=== PATIENT | male | born 1935 | race Caucasian/White ===

== ENCOUNTER → 2016-06-22 | Outpatient (CLI) | payer OTHER | LOC: BMCIMAGING 10:57 | PROVIDERS: ATTEND Internal Medicine Rheumatology | DX: M19.041 Primary osteoarthritis, right hand (principal); M19.042 Primary osteoarthritis, left hand; M17.11 Unilateral primary osteoarthritis, right knee ==

== ENCOUNTER 2016-10-02 11:01 | Inpatient (IN) | payer OTHER ==
--- NOTE | 2016-10-02 12:49 | EDPHY ---
H & P Stated Complaint: sent by pcp for R great toe -poss hematoma/infection? - Personal History Current Tetanus/Diphtheria Vaccine: Unsure Current Tetanus Diphtheria and Acellular Pertussis (TDAP): Unsure Tetanus Vaccine Date: 2009 - Medical/Surgical History Hx Asthma: No Hx Chronic Respiratory Disease: No Hx Diabetes: No Hx Cardiac Disease: Yes Hx Renal Disease: No Hx Cirrhosis: No Hx Alcoholism: No Hx HIV/AIDS: No Hx Splenectomy or Spleen Trauma: No Other PMH: heart arrthymias.afib, TIA 2012, hyperlipemia/AFIB - Social History Smoking Status: Former smoker Time Seen by Provider: 10/02/16 12:22 HPI/ROS: CHIEF COMPLAINT: Right great toe swelling and pain HISTORY OF PRESENT ILLNESS: 81-year-old male arrives via private vehicle complaining of progressive right great toe swelling, erythema over the past 2 days. He saw his primary care provider yesterday and had incision, drainage with release of purulent material and suturing of the incision and notes that the soft tissue swelling and erythema have progressed. He can size primary care prior to today and was recommended he come to the emergency department for further evaluation. He is on daily warfarin secondary to history of TIA. He denies lymphangitic streaking. Denies fever chills. Denies flu-like symptoms. Denies trauma history. PRIMARY CARE PROVIDER: Eva REVIEW OF SYSTEMS: A ten point review of systems was performed and is negative with the exception of the items mentioned in the HPI PAST MEDICAL & SURGICAL HISTORY: TIA, hyperlipidemia SOCIAL HISTORY: nonsmoker PHYSICAL EXAM (Prior to examination, patient consented to physical exam, hands were washed and my usual and customary physical exam procedures followed) 1) GENERAL: Well-developed, well-nourished, alert and oriented. Appears to be in no acute distress. 2) HEAD: Normocephalic, atraumatic 3) HEENT: Pupils equal, round, reactive to light bilaterally. Sclera anicteric. 4) NECK: Full range of motion, no meningeal signs. 5) LUNGS: Clear auscultation bilaterally 6) HEART: Regular rate and rhythm, no murmur, no heave, no gallop. 7) ABDOMEN: No guarding, no rebound, no focal tenderness, 8) MUSCULOSKELETAL: right lower extremity: No inguinal adenopathy, the right great toe is edematous, erythematous, tender, painful passive range of motion. Sutures in place on the dorsal aspect. No crepitus. Dried blood present. No lymphangitic streaking 9) BACK: no visual or palpable abnormality. 10) SKIN: Right great toe erythema. 11) Psychiatric: Patient is oriented X 3, there is no agitation. DIFFERENTIAL DIAGNOSIS: [in no particular include but limited to osteomyelitis , deep space infection, abscess, hematoma, arterial thrombus (Tammi Pretty Cap[place]) Constitutional: Initial Vital Signs Temperature (C) 36.5 C 10/02/16 11:05 Heart Rate 71 10/02/16 11:05 Respiratory Rate 16 10/02/16 11:05 Blood Pressure 132/88 H 10/02/16 11:05 O2 Sat (%) 97 10/02/16 11:05 O2 Delivery Mode Room Air Allergies/Adverse Reactions: No Known Allergies Allergy (Verified 12/22/15 16:01) Home Medications: Medication Instructions Recorded Cholecalciferol Vit D3 [Vitamin D3 2,000 units PO DAILY 10/02/16 (*)] Erythromycin Gel [Erythromycin 2% 1 [place]orota TP PRN PRN 10/02/16 Gel (*)] Warfarin Sodium [Coumadin 7.5MG 7.5 mg PO DAILY16 10/02/16 (*)] Medical Decision Making - Diagnostics Imaging: Discussed imaging studies w/ call specialist Radiologist, I viewed and interpreted images myself ED Course/Re-evaluation: 12:40 p.m.: Suture removed with release of bloody material only. Patient also seen and examined by Dr Martinez. No history of chronic skin infections or MRSA. His tetanus is up-to-date. Will be started on IV Ancef, blood cultures will be obtained. Will plan on admission for concerns over cellulitis, abscess, deep space infection, may necessitate MRI. 12:54 p.m.: Phone consultation with hospitalist Dr. Tre Mcleod who will admit patient (Tammi Pretty) Other Provider: I examined this patient at bedside and agree with Maria De Jesus's findings and plan for treatment. Exam reveals extremely swollen and erythematous toe, very suspicious for infection. (Navi Martinez) - Data Points Laboratory Results: Laboratory Results 10/02/16 13:10 10/02/16 13:10 Medications Given: Cefazolin Sodium/Dextrose (Ancef 1 Gm (Premix)) 50 mls @ 200 mls/hr IV Q8HRS FRANCISOC J PRN Reason: Protocol Stop: 11/01/16 19:59 Last Admin: 10/02/16 22:36 Dose: 50 mls Discontinued Medications Cefazolin Sodium/Dextrose (Ancef 1 Gm (Premix)) 50 mls @ 200 mls/hr IV EDNOW ONE PRN Reason: Protocol Stop: 10/02/16 13:03 Last Admin: 10/02/16 14:17 Dose: 50 mls Departure - Departure Disposition: [facility] Acute Clinical Impression: Cellulitis of great toe, right Condition: Fair
[2016-10-02 13:23] LABS: % IMMATURE GRANULYOCYTES 0.6 % (0.0-1.1); ABSOLUTE IMMATURE GRANULOCYTES 0.05 10^3/uL (0.00-0.10); ADD DIFF? NO; ADD MORPH? NO; ADD SCAN? NO; ATYPICAL LYMPHOCYTE FLAG 10 (0-99); FRAGMENT RBC FLAG 0 (0-99); HEMATOCRIT 43.9 % (40.0-51.0); HEMOGLOBIN 15.4 g/dL (13.7-17.5); LEFT SHIFT FLG 0 (0-99); LIPEMIA HEMOLYSIS FLAG 90 (0-99); MEAN CELL HEMOGLOBIN 31.1 pg (27.9-34.1); MEAN CELL HEMOGLOBIN CONCENTR. 35.1 g/dL (32.4-36.7); MEAN CELL VOLUME 88.7 fL (81.5-99.8); PLATELET CLUMPS FLAG 0 (0-99); PLATELET COUNT 189 10^3/uL (150-400); RED BLOOD CELL COUNT 4.95 10^6/uL (4.40-6.38); RED CELL DISTRIBUTION WIDTH 13.9 % (11.5-15.2)
[2016-10-02 13:36] LABS: INR 1.39 (0.83-1.16)
[2016-10-02 13:37] LABS: APTT 36.2 SEC (23.0-38.0)
[2016-10-02 13:41] LABS: SODIUM 137 mEq/L (134-144)
[2016-10-02 13:42] LABS: ANION GAP 11 mEq/L (8-16); CALCIUM 9.9 mg/dL (8.5-10.4); CARBON DIOXIDE 24 mEq/l (22-31); CHLORIDE 102 mEq/L (97-110); CREATININE 0.9 mg/dL (0.7-1.3); GLOMERULAR FILTRATION RATE > 60; GLUCOSE 86 mg/dL (70-100)
[2016-10-02] MEDS ORDERED: ONDANSETRON DISINTEGRATING 4 MG TAB PO PRN (15:36)
[2016-10-02] MEDS ORDERED: ACETAMINOPHEN 325 MG TAB PO PRN (15:36)
[2016-10-02] MEDS ORDERED: ONDANSETRON 4 MG/2 ML VIAL IVP PRN (15:36)
[2016-10-02] MEDS ORDERED: ERYTHROMYCIN 2% GEL TP PRN (15:39)
[2016-10-02] MEDS ORDERED: ACETAMINOPHEN 500 MG TAB PO PRN (15:41)
[2016-10-02] MEDS ORDERED: IOPAMIDOL (ISOVUE-300) 100 ML BTL ONE (15:50)
--- NOTE | 2016-10-02 16:26 | GHP ---
[f rep st] HISTORY AND PHYSICAL DATE OF ADMISSION: 10/02/2016 HISTORY OF PRESENTING ILLNESS: The patient is a pleasant 81-year-old gentleman with history of atri al fibrillation, who presents with a swollen, erythematous right great toe. He said it began to swe ll a couple days ago. He has not had fever, chills, groin pain, or lymphangitic streaking. He does not have diabetes or neuropathy. He does not use injection drugs. He does not recall trauma to it . He saw his primary care physician yesterday, an incision was made and a small amount of pus came out. He was placed on antibiotics, which I believe are Keflex. He returned this morning and attemp t at I and D was made, and no further pus was drained. He was referred to the emergency department for further evaluation and management. When I speak with the patient, he continues to deny fever, chills, lymphangitic streaking, or groin pain. He has not had previous infections there. Denies previous injury. REVIEW OF SYSTEMS: Complete 10-point review of systems conducted, and negative except as noted in t he HPI. PAST MEDICAL HISTORY: 1. Atrial fibrillation. 2. Remote TIA. ALLERGIES: No known drug allergies. MEDICATIONS: 1. Warfarin. 2. Vitamin D3. 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 Lives at [facility]. Continues to live a ro bust life. No tobacco, very rare alcohol. FAMILY HISTORY: Reviewed and unremarkable. His daughter is healthy, at the bedside. PHYSICAL EXAMINATION: VITAL SIGNS: Temperature 36.5, blood pressure 132/88, pulse 71, breathing 16 times a minute, 97% on room air. GENERAL: No acute distress. Sclerae anicteric. Oropharynx koby r. Mucous membranes are moist. NECK: Supple, without lymphadenopathy or JVD. LUNGS: Clear to au scultation bilaterally. HEART: S1, S2. ABDOMEN: Soft, nontender, nondistended. LOWER EXTREMITIE S: Right great toe is edematous, erythematous and warm. There is no pain with passive movement. T here is no joint infection. There is a small incision that is clean, dry, and intact. I am unable to express pus from it. It is about twice the size of his left great toe. He says this toe is cut off operator scorer nically bigger. There is no lymphangitic streaking. No inguinal lymphadenopathy. SKIN: Otherwise without rash. NEUROLOGIC: Exam is nonfocal. LABS: Chem-7 normal. White count 8.5, hematocrit 44, platelets are 189,000. INR is 1.4. Foot film interpreted by me, shows no foreign body, no gas, no evidence of bony erosion. I have discussed the case with Navi Pretty, PAC, of the emergency department. ASSESSMENT/PLAN: This 81-year-old gentleman presents with soft tissue infection. 1. Soft tissue infection. His toe is pretty erythematous and I suspect the pus has been removed bu t given its refractory nature, I will go ahead and perform a CT to look for fluid collection. I guillermo l start him on cefazolin. He has minimal risk factors for methicillin-resistant Staphylococcus chap[place]ito us. 2. Atrial fibrillation. Clinically, he is in sinus. 3. He does not have sepsis. 4. Prophylaxis: I will continue his warfarin. 5. Disposition: Inpatient status. /[id number]/MODL
[2016-10-03 04:57] LABS: % IMMATURE GRANULYOCYTES 0.5 % (0.0-1.1); ABSOLUTE IMMATURE GRANULOCYTES 0.04 10^3/uL (0.00-0.10); ADD DIFF? NO; ADD MORPH? NO; ADD SCAN? NO; ATYPICAL LYMPHOCYTE FLAG 0 (0-99); FRAGMENT RBC FLAG 0 (0-99); HEMATOCRIT 41.7 % (40.0-51.0); HEMOGLOBIN 14.2 g/dL (13.7-17.5); LEFT SHIFT FLG 0 (0-99); LIPEMIA HEMOLYSIS FLAG 90 (0-99); MEAN CELL HEMOGLOBIN 30.3 pg (27.9-34.1); MEAN CELL HEMOGLOBIN CONCENTR. 34.1 g/dL (32.4-36.7); MEAN CELL VOLUME 88.9 fL (81.5-99.8); MEAN PLATELET VOLUME 10.8 fL (8.7-11.7); PLATELET CLUMPS FLAG 20 (0-99); PLATELET COUNT 169 10^3/uL (150-400); RED BLOOD CELL COUNT 4.69 10^6/uL (4.40-6.38); RED CELL DISTRIBUTION WIDTH 13.7 % (11.5-15.2)
[2016-10-03 05:05] LABS: INR 1.33 (0.83-1.16); PROTIME(PATIENT) 16.5 SEC (12.0-15.0)
[2016-10-03 05:13] LABS: ANION GAP 10 mEq/L (8-16); CALCIUM 9.3 mg/dL (8.5-10.4); CARBON DIOXIDE 24 mEq/l (22-31); CHLORIDE 103 mEq/L (97-110); GLOMERULAR FILTRATION RATE > 60; GLUCOSE 104 mg/dL (70-100); POTASSIUM 3.9 mEq/L (3.5-5.2); SODIUM 137 mEq/L (134-144)
--- NOTE | 2016-10-03 09:28 | HOSPPROG ---
Hospitalist Progress Note Assessment/Plan: 81 yo M w AF here w R great toe cellulitis toes cellulitis: CT w no abscess (images reviewed/interpreted by me) improved needs add'l day IV abx AF: clinically in sinus anticoag: inr subtherapeutic continue warfarin pain: well controlled dispo: inpt Subjective: lost IV access overnight Objective: Vital Signs Temp Pulse Resp BP Pulse Ox 36.6 C 67 18 107/66 93 10/03/16 08:00 10/03/16 08:00 10/03/16 08:00 10/03/16 08:00 10/03/16 08:00 Laboratory Results 10/03/16 04:36 10/03/16 04:36 10/02/16 10/03/16 10/04/16 05:59 05:59 05:59 Output Total 1051 Balance -1051 PT 16.5 SEC (12.0-15.0) H 10/03/16 04:36 INR 1.33 (0.83-1.16) H 10/03/16 04:36 - Physical Exam Constitutional: no apparent distress, appears nourished Eyes: PERRL, anicteric sclera Ears, Nose, Mouth, Throat: moist mucous membranes, hearing normal Cardiovascular: regular rate and rhythym, no murmur, rub, or gallop Respiratory: no respiratory distress, no rales or rhonchi Gastrointestinal: normoactive bowel sounds, soft, non-tender abdomen Genitourinary: no bladder fullness, No quiroz in urethra Skin: warm, normal color Musculoskeletal: other (R chuck less erythematous, less warm, still swollen, not normal) Neurologic: AAOx3, sensation intact bilaterally Psychiatric: interacting appropriately, not anxious ICD10 Worksheet Patient Problems: Problems Problem Status Onset Cellulitis of great toe, right Acute Hyperlipidemia Active Hypertriglyceridemia Active Transient ischemic attack Active Fatigue Acute Shortness of breath Acute Simple hepatic cyst Acute
[2016-10-03] MEDS: CHOLECALCIFEROL VIT D3 1,000 UNITS TAB PO SCH (10:48)
[2016-10-03] MEDS ORDERED: WARFARIN SODIUM 7.5 MG TAB PO SCH (16:00)
[2016-10-04 05:06] LABS: INR 1.28 (0.83-1.16)
[2016-10-04 07:12] VITALS: BP 125/65; PULSE 60; RESP 18; TEMP 98.6; O2SAT 92
[2016-10-04] MEDS: CHOLECALCIFEROL VIT D3 1,000 UNITS TAB PO SCH (08:59)
--- NOTE | 2016-10-04 09:19 | HOSPPROG ---
Hospitalist Progress Note Assessment/Plan: 81 yo M w AF here w R great toe cellulitis toes cellulitis: CT w no abscess (images reviewed/interpreted by me) improved leave after today's dose cefazolin 8 days keflex AF: clinically in sinus anticoag: inr subtherapeutic continue warfarin pain: well controlled dispo: home today > 30 minutes Subjective: feels well. toe not painful Objective: Vital Signs Temp Pulse Resp BP Pulse Ox 37.0 C 60 18 125/65 H 92 10/04/16 07:12 10/04/16 07:12 10/04/16 07:12 10/04/16 07:12 10/04/16 07:12 Laboratory Results 10/03/16 04:36 10/03/16 04:36 10/03/16 10/04/16 10/05/16 05:59 05:59 05:59 Intake Total 100 Output Total 1051 Balance -1051 100 PT 16.0 SEC (12.0-15.0) H 10/04/16 04:35 INR 1.28 (0.83-1.16) H 10/04/16 04:35 - Physical Exam Constitutional: no apparent distress, appears nourished Eyes: PERRL, anicteric sclera Ears, Nose, Mouth, Throat: moist mucous membranes, hearing normal Cardiovascular: regular rate and rhythym, no murmur, rub, or gallop Respiratory: no respiratory distress, no rales or rhonchi Gastrointestinal: normoactive bowel sounds, soft, non-tender abdomen Genitourinary: no bladder fullness, No quiroz in urethra Skin: warm, normal color Musculoskeletal: full muscle strength, other (toe improved. less red. less warm. no fluctuance) Neurologic: AAOx3, sensation intact bilaterally ICD10 Worksheet Patient Problems: Problems Problem Status Onset Cellulitis of great toe, right Acute Hyperlipidemia Active Hypertriglyceridemia Active Transient ischemic attack Active Fatigue Acute Shortness of breath Acute Simple hepatic cyst Acute
--- NOTE | 2016-10-04 12:42 | GDS ---
[f rep st] DISCHARGE SUMMARY DISCHARGE DIAGNOSES: 1. Right great toe cellulitis. 2. Atrial fibrillation. HOSPITAL COURSE: Please see admission history and physical by Dr. Tre Mcleod. The patient pres ented with an erythematous, warm right great toe. He had been seen by Dr. Velasquez, his outpatient physician who had I and D'd it 1 day with removal of pus the 2nd day. He tried to I and D it but he was concerned with how it looked. Referred him to the emergency department. The patient did not h ave sepsis. He received cefazolin. CT scan confirmed no evidence of abscess. The toe continued to improve. It is notable that his right toe is larger in size than his left toe and he felt like it was pretty much at its baseline. He is discharged on cefazolin to complete a 10 day course of outpa tient antibiotics. /[id number]/MODL
== END 2016-10-04 14:31 | disposition home or self-care (01) | DRG 603 ==
LOC: F3E 14:42 → OBSVTOIN 15:36
PROVIDERS: ADMIT Internal Medicine; ATTEND Internal Medicine
DX: L03.031 Cellulitis of right toe (principal); I48.91 Unspecified atrial fibrillation
CPT/HCPCS: 96365; J0690; Q9967

== ENCOUNTER 2016-10-31 10:58 | Emergency (ER) | payer OTHER ==
[2016-10-31 11:06] VITALS: RESP 18
--- NOTE | 2016-10-31 11:29 | EDPHY ---
H & P Stated Complaint: R foot swelling "off and on "x couple of weeks Time Seen by Provider: 10/31/16 11:20 HPI/ROS: CHIEF COMPLAINT: Toe infection HISTORY OF PRESENT ILLNESS: This patient is an anticoagulated (Warfarin) 81 year old male complaining of an infection in his right great toe. He had an I&D four weeks ago, of a cutaneous abscess on the toe, followed by admission on 10/02/16 for two days for IV antibiotics. He was discharged with oral Keflex but developed diarrhea and discontinued his antibiotics. Over the past 2 days, the toe has become painful and red a can. He is not sure if the erythema completely resolved while he was taking his antibiotic. He feels his right foot has been more swollen than usual , but that swelling is reduced today. Associated with pain with walking. He also complains of a fungal infection in his toenails, and is seeking follow up with podiatry. He denies fever, vomiting, weakness, or other associated symptoms or concerns. REVIEW OF SYSTEMS: No numbness, weakness, excessive bleeding, syncopal episode, other injury. - Personal History Current Tetanus Diphtheria and Acellular Pertussis (TDAP): Yes Tetanus Vaccine Date: 2009 - Medical/Surgical History PMH: Atrial fibrillation, Hyperlipidemia, TIA (2012) Past medical records reviewed including admission from 10/02/16 for cellulitis of the right great toe. 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 Lives in [place]. . Occasional alcohol consumption. Former smoker. - Physical Exam Exam: Alert and pleasant Extremities: Erythema on the dorsal aspect of first toe, especially over the proximal phalanx, no pain with ROM at MCP or IP joints. Skin: Warm and dry Neuro: Motor and sensory intact Vascular: Capillary refill brisk distally Constitutional: Initial Vital Signs Temperature (C) 36.7 C 10/31/16 11:01 Heart Rate 83 10/31/16 11:01 Respiratory Rate 18 10/31/16 11:01 Blood Pressure 133/87 H 10/31/16 11:01 O2 Sat (%) 95 10/31/16 11:01 O2 Delivery Mode Room Air Allergies/Adverse Reactions: No Known Allergies Allergy (Verified 10/31/16 11:01) Home Medications: Medication Instructions Recorded Warfarin Sodium [Coumadin 7.5MG 7.5 mg PO DAILY16 10/02/16 (*)] Doxycycline Hyclate 100 mg PO BID #20 tablet 10/31/16 Medical Decision Making ED Course/Re-evaluation: 81 year old male presents with cellulitis of his right great toe. He was evaluated 10/02/16 for similar symptoms following I&D by his primary care provider and admitted for IV antibiotics, discharged 10/04/16 with oral Keflex. He did not complete this course, and is uncertain whether his symptoms ever fully resolved. He presents today with erythema of the right first toe. He has no pain with ROM at MCP or IP joints. CT during the patient's admission four weeks ago was negative for abscess. Plan to discharge home in good condition with prescription for Doxycycline. I stressed the importance of completing his full course of antibiotics. He is also concerned regarding fungal infection of his toenails. I encouraged follow up with podiatry. He will follow up in 2-3 days for recheck by his primary care provider. He is currently anticoagulated (Warfarin) and understands he should check his INR 2-3 days after beginning his antibiotic course. Return precautions discussed. The patient is comfortable with this plan. Differential Diagnosis: Differential diagnosis includes though is not limited to gout, septic arthritis , recurrent abscess Departure - Departure Disposition: Home, Routine, Self-Care Clinical Impression: Cellulitis of great toe, right Condition: Good Instructions: Cellulitis (ED) Additional Instructions: 1. Follow up with Dr. Velasquez on Wednesday or Wednesday for continued evaluation and management. 2. Take your Doxycycline as prescribed. It is important to finish your entire course of antibiotics. Contact your primary care provider if you experience adverse side effects to discuss management of symptoms. Check your INR two days after starting your antibiotics. 3. Return to the emergency for increased pain, swelling, redness, or discharge from your toe or if you experience fever, vomiting, weakness, or other worsening of condition. Referrals: CAMPOS VELASQUEZ [Primary Care Provider] - As per Instructions Prescriptions: Doxycycline Hyclate 100 mg PO BID #20 tablet Report Scribed for: Safia Connors Report Scribed by: Callie Bass Date of Report: 10/31/16 Time of Report: 11:35 Physician Review and Approval Statement: 10/31/16 11:35 Portions of this note were transcribed by a medical records coordinator. I personally performed a history, physical exam, medical decision making, and confirmed accuracy of information the transcribed note.
[2016-10-31 12:17] VITALS: BP 115/58; PULSE 66; TEMP 97.9; O2SAT 90
== END 2016-10-31 12:17 | disposition home or self-care (01) ==
DX: L03.031 Cellulitis of right toe (principal); Z79.01 Long term (current) use of anticoagulants; Z87.891 Personal history of nicotine dependence

== ENCOUNTER → 2017-02-02 | Outpatient (CLI) | payer OTHER ==
[~2017-02-02] MED LIST: IOPAMIDOL (ISOVUE-300) 100 ML BTL ONE
== END ==
LOC: FIMAGING 09:23
PROVIDERS: ATTEND Family Medicine
DX: R22.1 Localized swelling, mass and lump, neck (principal)
CPT/HCPCS: 70491; 76536; Q9967

== ENCOUNTER 2017-10-25 18:09 | Emergency (ER) | payer OTHER ==
[2017-10-25] MEDS ORDERED: HYDROCODONE/APAP 5/325 TAB PO ONE (18:47)
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
[2017-10-25] MEDS ORDERED: HYDROCOD/APAP 5/325 PREPACK#6 BTL TAKEHOME ONE (19:45)
[2017-10-25 20:37] VITALS: BP 112/64
== END 2017-10-25 20:37 | disposition home or self-care (01) ==
DX: S30.0XXA Contusion of lower back and pelvis, initial encounter (principal); S69.92XA Unspecified injury of left wrist, hand and finger(s), initial encounter; W19.XXXA Unspecified fall, initial encounter

== ENCOUNTER 2017-12-07 08:12 | Observation (INO) | payer OTHER ==
--- NOTE | 2017-12-07 09:03 | EDPHY ---
H & P Time Seen by Provider: 12/07/17 08:56 HPI/ROS: Chief complaint. shortness of breath HPI. Patient is a 82-year-old male with shortness of breath over the past 2-3 days. He says he is not getting enough air. Symptoms were worse last night. No fever. He has had dry cough for months. He denies chest pain. He has been generally weak for the past 6 weeks. He is on warfarin because of a history of atrial fibrillation. He has had occasional diarrhea over the past 6 weeks. Apparently had an echocardiogram 2 weeks ago. He also tells me slightly dizzy. No ankle swelling or unusual leg pain. ROS 10 systems were reviewed and negative with the exception of the elements mentioned in the history of present illness Past Medical/Surgical History: Atrial fibrillation, TIA, dyslipidemia Social History: , nonsmoker, no alcohol Smoking Status: Former smoker Physical Exam: General Appearance: Alert well-developed male mild distress vital signs are stable Eyes: Pupils equal and round no pallor or injection. ENT, Mouth: Mucous membranes are moist. Respiratory: There are no retractions, lungs are clear to auscultation. Cardiovascular: Regular rate and rhythm. Gastrointestinal: Abdomen is soft and nontender, no masses, bowel sounds normal. Neurological: Awake and alert, sensory and motor exams grossly normal. Skin: Warm and dry, no rashes. Musculoskeletal: Neck is supple nontender. Extremities symmetrical, full range of motion. Psychiatric: Patient is oriented X 3, there is no agitation. Constitutional: Initial Vital Signs Temperature (C) 36.7 C 12/07/17 08:23 Heart Rate 66 12/07/17 08:23 Respiratory Rate 16 12/07/17 08:23 Blood Pressure 131/61 H 12/07/17 08:23 O2 Sat (%) 93 12/07/17 08:23 O2 Delivery Mode Room Air Allergies/Adverse Reactions: No Known Allergies Allergy (Verified 12/07/17 08:22) Home Medications: Medication Instructions Recorded Warfarin Sodium [Coumadin 7.5MG 7.5 mg PO DAILY16 10/02/16 (*)] Acetaminophen [Tylenol ES 500 mg 500 mg PO Q6HRS PRN 12/07/17 (*)] Herbals/Supplements -Info Only 1 ea PO DAILY 12/07/17 Timothy/Polymyx B Sulf/Dexameth 1 drops LEFTEYE QID 12/07/17 [Maxitrol Opht Drops (*)] Silodosin [Rapaflo] 8 mg PO DAILY 12/07/17 Medical Decision Making - Diagnostics EKG Interpretation: EKG interpreted by me shows normal sinus rhythm the with normal interval and axis. QRS shows right bundle branch block and left anterior fascicular block. No significant ST elevation or depression. No arrhythmia. The rate is 65 Imaging Results: Imaging Impressions Chest X-Ray 12/07/17 09:21 Impression: Reticular retrocardiac opacity may represent atelectasis or pneumonia. Chest x-ray interpreted by me shows apparent pneumonia Procedures: IV normal saline, monitor Sepsis workup. Negative lactate. Blood cultures were obtained. Rocephin IV as antibiotic in the emergency department ED Course/Re-evaluation: The patient family and I discussed imaging and lab results. We discussed treatment plan including recommendation for admission. He expresses understanding and agreement I consulted discussed case with hospitalist who agrees to the admission Differential Diagnosis: I considered pneumonia, congestive heart failure, acute coronary syndrome - Data Points Laboratory Results: Laboratory Results 12/07/17 08:52 12/07/17 08:52 12/07/17 12/07/17 12/07/17 10:20 08:53 08:52 WBC RBC Hgb Hct MCV MCH MCHC RDW Plt Count MPV Neut % (Auto) Lymph % (Auto) Charles % (Auto) Eos % (Auto) Baso % (Auto) Nucleat RBC Rel Count Absolute Neuts (auto) Absolute Lymphs (auto) Absolute Monos (auto) Absolute Eos (auto) Absolute Basos (auto) Absolute Nucleated RBC Immature Gran % Seg Neutrophils % Band Neutrophils % Lymphocytes % Monocytes % Eosinophils % Basophils % Metamyelocytes % Myelocytes % Promyelocytes % Blast Cells % Immature Gran # Absolute Seg Neuts Absolute Band Neuts Absolute Lymphocytes Absolute Monocytes Absolute Eosinophils Absolute Basophils Absolute Metamyelocyte Absolute Myelocytes Absolute Promyelocytes Absolute Plasma Cells RBC/WBC/PLT Morphology Absolute Blast Cells Plasma Cells % Platelet Estimate Smear Review By PT INR APTT VBG Lactic Acid 1.1 mmol/L mmol/L (0.7-2.1) Sodium Potassium Chloride Carbon Dioxide Anion Gap BUN Creatinine Estimated GFR Glucose Calcium Total Bilirubin Conjugated Bilirubin Unconjugated Bilirubin AST ALT Alkaline Phosphatase POC Troponin I 0.00 ng/mL ng/mL (0.00-0.08) NT-Pro-B Natriuret Pep Total Protein Albumin Procalcitonin 0.22 ng/mL H ng/mL (0.02-0.10) 12/07/17 12/07/17 12/07/17 08:52 08:52 08:52 WBC RBC Hgb Hct MCV MCH MCHC RDW Plt Count MPV Neut % (Auto) Lymph % (Auto) Charles % (Auto) Eos % (Auto) Baso % (Auto) Nucleat RBC Rel Count Absolute Neuts (auto) Absolute Lymphs (auto) Absolute Monos (auto) Absolute Eos (auto) Absolute Basos (auto) Absolute Nucleated RBC Immature Gran % Seg Neutrophils % Band Neutrophils % Lymphocytes % Monocytes % Eosinophils % Basophils % Metamyelocytes % Myelocytes % Promyelocytes % Blast Cells % Immature Gran # Absolute Seg Neuts Absolute Band Neuts Absolute Lymphocytes Absolute Monocytes Absolute Eosinophils Absolute Basophils Absolute Metamyelocyte Absolute Myelocytes Absolute Promyelocytes Absolute Plasma Cells RBC/WBC/PLT Morphology Absolute Blast Cells Plasma Cells % Platelet Estimate Smear Review By PT 20.4 SEC H SEC (12.0-15.0) INR 1.73 H (0.83-1.16) APTT 39.6 SEC H SEC (23.0-38.0) VBG Lactic Acid Sodium 136 mEq/L mEq/L (135-145) Potassium 4.2 mEq/L mEq/L (3.3-5.0) Chloride 106 mEq/L mEq/L (97-110) Carbon Dioxide 22 mEq/l mEq/l (22-31) Anion Gap 8 mEq/L mEq/L (6-14) BUN 15 mg/dL mg/dL (7-23) Creatinine 0.9 mg/dL mg/dL (0.7-1.3) Estimated GFR > 60 Glucose 107 mg/dL H mg/dL (70-100) Calcium 8.9 mg/dL mg/dL (8.5-10.4) Total Bilirubin 0.7 mg/dL mg/dL 0.7 mg/dL mg/dL (0.1-1.4) (0.1-1.4) Conjugated Bilirubin 0.3 mg/dL mg/dL (0.0-0.5) Unconjugated Bilirubin 0.4 mg/dL mg/dL (0.0-1.1) AST 102 IU/L H IU/L (17-59) ALT 90 IU/L H IU/L (21-72) Alkaline Phosphatase 116 IU/L IU/L (38-126) POC Troponin I NT-Pro-B Natriuret Pep 499 pg/mL H pg/mL (0-450) Total Protein 6.8 g/dL g/dL (6.3-8.2) Albumin 3.5 g/dL g/dL (3.5-5.0) Procalcitonin 12/07/17 08:52 WBC 15.91 10^3/uL H 10^3/uL (3.80-9.50) RBC 4.54 10^6/uL 10^6/uL (4.40-6.38) Hgb 13.5 g/dL L g/dL (13.7-17.5) Hct 39.4 % L % (40.0-51.0) MCV 86.8 fL fL (81.5-99.8) MCH 29.7 pg pg (27.9-34.1) MCHC 34.3 g/dL g/dL (32.4-36.7) RDW 15.5 % H % (11.5-15.2) Plt Count 193 10^3/uL 10^3/uL (150-400) MPV 10.6 fL fL (8.7-11.7) Neut % (Auto) Not Reported Lymph % (Auto) Not Reported Charles % (Auto) Not Reported Eos % (Auto) Not Reported Baso % (Auto) Not Reported Nucleat RBC Rel Count Not Reported Absolute Neuts (auto) Not Reported Absolute Lymphs (auto) Not Reported Absolute Monos (auto) Not Reported Absolute Eos (auto) Not Reported Absolute Basos (auto) Not Reported Absolute Nucleated RBC Not Reported Immature Gran % Not Reported Seg Neutrophils % 34.0 % % Band Neutrophils % 0.0 % % Lymphocytes % 61.0 % % Monocytes % 3.0 % % Eosinophils % 2.0 % % Basophils % 0.0 % % Metamyelocytes % 0.0 % % Myelocytes % 0.0 % % Promyelocytes % 0.0 % % Blast Cells % 0.0 % % Immature Gran # Not Reported Absolute Seg Neuts 5.41 10^3/uL 10^3/uL (1.70-6.50) Absolute Band Neuts 0.00 10^3/uL 10^3/uL (0.00-0.70) Absolute Lymphocytes 9.71 10^3/uL H 10^3/uL (1.00-3.00) Absolute Monocytes 0.48 10^3/uL 10^3/uL (0.30-0.80) Absolute Eosinophils 0.32 10^3/uL 10^3/uL (0.03-0.40) Absolute Basophils 0.00 10^3/uL L 10^3/uL (0.02-0.10) Absolute Metamyelocyte 0.00 10^3/mL 10^3/mL (0.00-0.00) Absolute Myelocytes 0.00 10^3/mL 10^3/mL (0.00-0.00) Absolute Promyelocytes 0.00 10^3/uL 10^3/uL (0.00-0.00) Absolute Plasma Cells 0.00 10^3/uL 10^3/uL (0.00-0.00) RBC/WBC/PLT Morphology NORMAL (NORMAL) Absolute Blast Cells 0.00 10^3/uL 10^3/uL (0.00-0.00) Plasma Cells % 0.0 % % Platelet Estimate ADEQUATE (ADEQ) Smear Review By Pending PT INR APTT VBG Lactic Acid Sodium Potassium Chloride Carbon Dioxide Anion Gap BUN Creatinine Estimated GFR Glucose Calcium Total Bilirubin Conjugated Bilirubin Unconjugated Bilirubin AST ALT Alkaline Phosphatase POC Troponin I NT-Pro-B Natriuret Pep Total Protein Albumin Procalcitonin Medications Given: Discontinued Medications Ceftriaxone Sodium/Dextrose (Rocephin 1 Gm (Premix)) 50 mls @ 100 mls/hr IV EDNOW ONE PRN Reason: Protocol Stop: 12/07/17 10:37 Last Admin: 12/07/17 10:47 Dose: 50 mls Sodium Chloride (Ns) 1,000 mls @ 0 mls/hr IV EDNOW ONE; Wide Open PRN Reason: Protocol Stop: 12/07/17 10:09 Last Admin: 12/07/17 10:46 Dose: 1,000 mls Sodium Chloride (Ns) 1,000 mls @ 0 mls/hr IV EDNOW ONE; Wide Open PRN Reason: Protocol Stop: 12/07/17 10:09 Last Admin: 12/07/17 10:46 Dose: 1,000 mls Point of Care Test Results: Chemistry 12/07/17 08:53 POC Troponin I 0.00 ng/mL ng/mL (0.00-0.08) Departure - Departure Disposition: [facility] Inpatient Acute Clinical Impression: Pneumonia Qualifiers: Pneumonia type: due to unspecified organism Laterality: unspecified laterality Lung location: unspecified part of lung Qualified Code(s): J18.9 - Pneumonia, unspecified organism Condition: Fair
[2017-12-07 09:32] LABS: PLATELET COUNT 193 10^3/uL (150-400)
[2017-12-07 09:45] LABS: INR 1.73 (0.83-1.16); PROTIME(PATIENT) 20.4 SEC (12.0-15.0)
[2017-12-07] MEDS ORDERED: NS 1,000 ML IV ONE ×2 (10:08)
[2017-12-07] MEDS ORDERED: ONDANSETRON 4 MG/2 ML VIAL IVP PRN (12:42)
[2017-12-07] MEDS ORDERED: ONDANSETRON DISINTEGRATING 4 MG TAB PO PRN (12:42)
[2017-12-07] MEDS ORDERED: ACETAMINOPHEN 325 MG TAB PO PRN (12:42)
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
--- NOTE | 2017-12-07 14:03 | CPEKG ---
Test Reason : OPEN Blood Pressure : / mmHG Vent. Rate : 065 BPM Atrial Rate : 065 BPM P-R Int : 096 ms QRS Dur : 152 ms QT Int : 452 ms P-R-T Axes : 019 -51 -31 degrees QTc Int : 470 ms Sinus rhythm Atrial premature complex Short FL interval RBBB and LAFB Confirmed by Js Noonan ([id number]) on 12/07/2017 2:02:57 PM Referred By: Confirmed By:Js Noonan
[2017-12-07] MEDS ORDERED: IOPAMIDOL (ISOVUE-300) 150 ML BTL ONE (16:36)
[2017-12-08 05:19] LABS: PLATELET COUNT 151 10^3/uL (150-400)
[2017-12-08] MEDS ORDERED: AMOXICILLIN/CLAVULANATE POT 875/125 MG TAB PO SCH (09:00)
[2017-12-08 13:11] VITALS: BP 115/56
--- NOTE | 2017-12-08 14:27 | PDDCSUM ---
Discharge Summary Discharge Summary: Date of Admission: December 07, 2017 Date of Discharge: December 08, 2017 Discharge Diagnoses: Community-acquired pneumonia Recent acute diverticulitis Recurrent dental infections Paroxysmal AFib Subtherapeutic INR Benign lung nodule Right bundle branch block Left anterior fascicular block Gout Osteoarthritis exclude hyperlipidemia BPH Admission Diagnoses: Possible pneumonia New onset headache Ataxia Intermittent paresthesias Dental infections Recent colitis with persistent left lower quadrant abdominal pain Abnormal transaminases Atrial fibrillation on warfarin Subtherapeutic INR Consultants: None. Hospital Course: Patient is an 82-year-old male who presented with dyspnea, sweating, generalized weakness, and fatigue. When he presented to the ED, chest x-ray revealed a retrocardiac opacity consistent with pneumonia or atelectasis. Patient was given IV ceftriaxone and admitted for observation. He mentioned that he has had other multiple symptoms in the last month. 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 Additional imaging was performed: CT of the head because patient reported feeling off balance and being unable to walk in a straight line and having had a new daily headache. CT of abdomen and pelvis for left lower quadrant abdominal pain persisting after having a stomach bug several weeks ago. Patient responded greatly to IV antibiotic within 1 day. He was switched to Augmentin and discharged home in stable condition. He was instructed to follow up with his PCP regarding ongoing symptoms that may persist. He was recommended to follow up regarding a left lower lobe lung nodule seen incidentally on CT scan. Physical Exam: General: The patient is a male who is alert and in no acute distress. HEENT: normocephalic, extraocular movements intact, conjunctivae clear. Nares and oral mucosa pink and moist. Neck: trachea midline, no visible masses, no external lesions. Resp: unlabored breathing. Abd: soft and nondistended. Musculoskeletal: Normal muscle tone and bulk. Neuro: cranial nerves II XII grossly intact. Intact gross motor and sensory function. Psych: appropriate mood/affect. Skin: no pallor. Condition: Stable. Discharged to: Home. Pertinent tests/labs/imaging: CT of the head with and without contrast-no acute intracranial abnormality. CT of the abdomen and pelvis with contrast-inflammation in the left lower quadrant consistent with recent diverticulitis Medications: Please see med rec form. Augmentin 1000 mg twice a day for 5 days. Special instructions: Discuss with PCP regarding left lower lobe lung nodule. If balance problem persists, recommend further workup via PCP. Follow up: Follow up with PCP in 1 week > 30 minutes of total time was spent on counseling and coordination of care for this patient's discharge.
[2017-12-08] MEDS ORDERED: WARFARIN SODIUM 7.5 MG TAB PO SCH (16:00)
== END 2017-12-08 14:59 | disposition home or self-care (01) ==
LOC: INTOOBSV 10:28 → F3E 13:07
PROVIDERS: ADMIT Internal Medicine; ATTEND Internal Medicine
DX: J18.9 Pneumonia, unspecified organism (principal); K57.30 Diverticulosis of large intestine without perforation or abscess without bleeding; K04.7 Periapical abscess without sinus; E86.0 Dehydration; R91.1 Solitary pulmonary nodule; M10.9 Gout, unspecified; I45.2 Bifascicular block; N40.0 Benign prostatic hyperplasia without lower urinary tract symptoms; E78.5 Hyperlipidemia, unspecified; Z87.891 Personal history of nicotine dependence; Z86.79 Personal history of other diseases of the circulatory system
CPT/HCPCS: 70470; 71046; 74177; 93005; 96365; 99285; G0378; J0696; Q9967; 84484-PO

== ENCOUNTER 2018-06-11 20:12 | Emergency (ER) | payer OTHER ==
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
[2018-06-11 20:57] VITALS: BP 175/86
== END 2018-06-11 20:56 | disposition home or self-care (01) ==
DX: Z00.00 Encounter for general adult medical examination without abnormal findings (principal); I48.91 Unspecified atrial fibrillation; Z86.73 Personal history of transient ischemic attack (TIA), and cerebral infarction without residual deficits; E78.5 Hyperlipidemia, unspecified; V49.49XA Driver injured in collision with other motor vehicles in traffic accident, initial encounter; Y92.410 Unspecified street and highway as the place of occurrence of the external cause; Z79.01 Long term (current) use of anticoagulants

== ENCOUNTER 2018-06-18 15:26 | Inpatient (IN) | payer OTHER ==
--- NOTE | 2018-06-18 15:38 | EDPHY ---
H & P Stated Complaint: syncope/fall Time Seen by Provider: 06/18/18 15:38 HPI/ROS: CHIEF COMPLAINT: Syncope, right knee pain HISTORY OF PRESENT ILLNESS: The patient is an 82-year-old man with a history of atrial fibrillation on Eliquis and recently started metoprolol 12.5 once daily for an episode of nonsustained V-tach seen on heart monitor a few months ago. His garbage collector is Dr. Serrato. His is with him feels that he has been lightheaded and fainting since he started the metoprolol. Today he was getting his hair cut and when he stood up from the preston chair he felt lightheaded and fell to the ground. He landed on his right knee. He has pain in that knee but no swelling or bruising or deformity. He has been ambulatory. This was 3 hr prior to arrival. He did not hit his head. He denies loss of consciousness. No nausea vomiting or GI symptoms. No chest pain or shortness of breath. No palpitations. Severity: Moderate Modifying factors: None REVIEW OF SYSTEMS: Constitutional: denies: chills, fever, recent illness, recent injury EENTM: denies: blurred vision, double vision, nose congestion Respiratory: denies: cough, shortness of breath Cardiac see HPI: denies: chest pain, irregular heart rate, palpitations Gastrointestinal/Abdominal: denies: abdominal pain, diarrhea, nausea, vomiting, blood streaked stools Genitourinary: denies: dysuria, frequency, hematuria, pain Musculoskeletal: See HPI Skin: denies: lesions, rash, jaundice, bruising Neurological: denies: headache, numbness, paresthesia, tingling, dizziness, weakness Hematologic/Lymphatic: denies: blood clots, easy bleeding, easy bruising Immunologic/allergic: denies: HIV/AIDS, transplant 10 systems reviewed and negative except as noted EXAM: GENERAL: Well-appearing, well-nourished and in no acute distress. HEAD: Atraumatic, normocephalic. EYES: Pupils equal round and reactive to light, extraocular movements intact, sclera anicteric, conjunctiva are normal. ENT: TMs normal, nares patent, oropharynx clear without exudates. Moist mucous membranes. NECK: Normal range of motion, supple without lymphadenopathy or JVD. LUNGS: Breath sounds clear to auscultation bilaterally and equal. No wheezes rales or rhonchi. HEART: Bradycardic but regular, without murmurs, rubs or gallops. ABDOMEN: Soft, nontender, normoactive bowel sounds. No guarding, no rebound. No masses appreciated. BACK: No CVA tenderness, no spinal tenderness, step-offs or deformities EXTREMITIES: Mild pain to right knee, no visible deformity swelling or bruising. No pain with palpation. Normal range of motion, no pitting or edema. No clubbing or cyanosis. NEUROLOGICAL: Cranial nerves II through XII grossly intact. Normal speech, normal gait. 5/5 strength, normal movement in all extremities, normal sensation , normal reflexes PSYCH: Normal mood, normal affect. SKIN: Warm, dry, normal turgor, no visible rashes or lesions. Source: Patient Exam Limitations: No limitations - Personal History Tetanus Vaccine Date: 2009 - Medical/Surgical History Hx Asthma: No Hx Chronic Respiratory Disease: No Hx Diabetes: No Hx Cardiac Disease: Yes Hx Renal Disease: No Hx Cirrhosis: No Hx Alcoholism: No Hx HIV/AIDS: No Hx Splenectomy or Spleen Trauma: No Other PMH: heart arrthymias.afib, TIA 2012, hyperlipemia - Family History Significant Family History: No pertinent family hx - Social History Smoking Status: Former smoker Alcohol Use: None Constitutional: Initial Vital Signs Temperature (C) 36.7 C 06/18/18 15:29 Heart Rate 85 06/18/18 15:29 Respiratory Rate 18 06/18/18 15:29 Blood Pressure 152/82 H 06/18/18 15:29 O2 Sat (%) 93 06/18/18 15:29 O2 Delivery Mode Room Air Allergies/Adverse Reactions: No Known Allergies Allergy (Verified 06/18/18 15:31) Home Medications: Medication Instructions Recorded Acetaminophen [Tylenol 325mg (*)] 325 mg PO DAILY PRN 06/18/18 Apixaban [Eliquis] 5 mg PO BID 06/18/18 Ascorbic Acid [Vitamin C 500 mg 500 mg PO DAILY 06/18/18 (*)] Cholecalciferol Vit D3 [Vitamin D3 1,000 units PO DAILY 06/18/18 (*)] Herbals/Supplements -Info Only 1 ea PO DAILY 06/18/18 Metoprolol Succinate Xr [Toprol Xl 12.5 mg PO DAILY 06/18/18 25 mg (*)] Pyridoxine HCl [Vitamin B-6 100 mg 100 mg PO DAILY 06/18/18 (*)] Medical Decision Making - Diagnostics EKG Interpretation: An EKG obtained and was read and documented in trace view. Please see trace view for full reading and report. Sinus bradycardia, right bundle branch block similar to previous Imaging: Discussed imaging studies w/ coin machine mechanic Radiologist ED Course/Re-evaluation: 4:30 p.m. we discussed the case with Dr. Up who will admit. The patient remains bradycardic around 50. He declines splinting for his tibial plateau fracture which is very minor. Will consult Orthopedics. Dr. Serrato is office is aware that the patient is here. 4:44 p.m. discussed the case with Dr. Butler who will consult. Differential Diagnosis: Partial list of the Differential diagnosis considered include but were not limited to; bradycardia, syncope fracture hematoma and although unlikely based on the history and physical exam, I also considered intracranial injury, spinal injury, acute coronary disease. - Data Points Laboratory Results: Laboratory Results 06/19/18 03:24 06/19/18 03:24 06/19/18 06/19/18 06/19/18 03:24 03:24 03:24 WBC RBC Hgb Hct MCV MCH MCHC RDW Plt Count MPV Neut % (Auto) Lymph % (Auto) [place] % (Auto) Eos % (Auto) Baso % (Auto) Nucleat RBC Rel Count Absolute Neuts (auto) Absolute Lymphs (auto) Absolute Monos (auto) Absolute Eos (auto) Absolute Basos (auto) Absolute Nucleated RBC Immature Gran % Immature Gran # PT 14.1 SEC SEC (12.0-15.0) INR 1.14 (0.83-1.16) Sodium 137 mEq/L mEq/L (135-145) Potassium 4.2 mEq/L mEq/L (3.5-5.2) Chloride 106 mEq/L mEq/L (97-110) Carbon Dioxide 22 mEq/l mEq/l (22-31) Anion Gap 9 mEq/L mEq/L (6-14) BUN 19 mg/dL mg/dL (7-23) Creatinine 0.9 mg/dL mg/dL (0.7-1.3) Estimated GFR > 60 Glucose 90 mg/dL mg/dL (70-100) Calcium 8.7 mg/dL mg/dL (8.5-10.4) Magnesium 1.9 mg/dL mg/dL (1.6-2.3) Troponin I < 0.012 ng/mL ng/mL (0.000-0.034) TSH 6.260 uIU/mL H uIU/mL (0.465-4.680) Free T4 1.18 ng/dL ng/dL (0.59-2.19) 06/19/18 03:24 WBC 9.23 10^3/uL 10^3/uL (3.80-9.50) RBC 4.22 10^6/uL L 10^6/uL (4.40-6.38) Hgb 13.0 g/dL L g/dL (13.7-17.5) Hct 38.7 % L % (40.0-51.0) MCV 91.7 fL fL (81.5-99.8) MCH 30.8 pg pg (27.9-34.1) MCHC 33.6 g/dL g/dL (32.4-36.7) RDW 13.3 % % (11.5-15.2) Plt Count 165 10^3/uL 10^3/uL (150-400) MPV 11.3 fL fL (8.7-11.7) Neut % (Auto) 48.9 % % (39.3-74.2) Lymph % (Auto) 38.1 % % (15.0-45.0) [place] % (Auto) 10.2 % % (4.5-13.0) Eos % (Auto) 2.1 % % (0.6-7.6) Baso % (Auto) 0.4 % % (0.3-1.7) Nucleat RBC Rel Count 0.0 % % (0.0-0.2) Absolute Neuts (auto) 4.51 10^3/uL 10^3/uL (1.70-6.50) Absolute Lymphs (auto) 3.52 10^3/uL H 10^3/uL (1.00-3.00) Absolute Monos (auto) 0.94 10^3/uL H 10^3/uL (0.30-0.80) Absolute Eos (auto) 0.19 10^3/uL 10^3/uL (0.03-0.40) Absolute Basos (auto) 0.04 10^3/uL 10^3/uL (0.02-0.10) Absolute Nucleated RBC 0.00 10^3/uL 10^3/uL (0-0.01) Immature Gran % 0.3 % % (0.0-1.1) Immature Gran # 0.03 10^3/uL 10^3/uL (0.00-0.10) PT INR Sodium Potassium Chloride Carbon Dioxide Anion Gap BUN Creatinine Estimated GFR Glucose Calcium Magnesium Troponin I TSH Free T4 Medications Given: Acetaminophen (Tylenol) 650 mg PO Q4HRS PRN PRN Reason: Pain, Mild/Fever, Can Take PO Stop: 12/15/18 16:46 Last Admin: 06/18/18 23:40 Dose: 650 mg Apixaban (Eliquis) 5 mg PO BID FRANCISCO J Stop: 12/16/18 08:59 Last Admin: 06/19/18 14:54 Dose: 5 mg Oxycodone HCl (Oxycodone Ir) 5 - 10 mg PO Q4HRS PRN PRN Reason: Pain, Severe Able to Take PO Stop: 06/29/18 01:26 Last Admin: 06/19/18 10:04 Dose: 5 mg Discontinued Medications Sodium Chloride (Ns) 1,000 mls @ 0 mls/hr IV EDNOW ONE; Wide Open PRN Reason: Protocol Stop: 06/18/18 15:48 Last Admin: 06/18/18 16:00 Dose: 1,000 mls Point of Care Test Results: Chemistry 06/18/18 15:54 POC Troponin I 0.00 ng/mL ng/mL (0.00-0.08) Departure - Departure Disposition: [facility] Inpatient Acute Clinical Impression: Bradycardia Syncope Qualifiers: Syncope type: unspecified Qualified Code(s): R55 - Syncope and collapse Tibial plateau fracture, right Qualifiers: Encounter type: initial encounter Fracture type: closed Qualified Code(s): S82.141A - Displaced bicondylar fracture of right tibia, initial encounter for closed fracture Condition: Fair
[2018-06-18] MEDS ORDERED: NS 1,000 ML IV ONE (15:47)
--- NOTE | 2018-06-18 15:58 | CPEKG ---
Test Reason : OPEN Blood Pressure : / mmHG Vent. Rate : 049 BPM Atrial Rate : 049 BPM P-R Int : 167 ms QRS Dur : 161 ms QT Int : 480 ms P-R-T Axes : 060 -53 -13 degrees QTc Int : 434 ms Sinus bradycardia RBBB and LAFB Confirmed by Carl Ross ([id number]) on 06/18/2018 3:57:35 PM Referred By: Carl Ross Confirmed By:Carl Ross
[2018-06-18 16:17] LABS: PLATELET COUNT 174 10^3/uL (150-400)
[2018-06-18 16:26] LABS: INR 1.12 (0.83-1.16)
[2018-06-18] MEDS ORDERED: ONDANSETRON DISINTEGRATING 4 MG TAB PO PRN (16:47)
[2018-06-18] MEDS ORDERED: ONDANSETRON 4 MG/2 ML VIAL IVP PRN (16:47)
[2018-06-18] MEDS: ACETAMINOPHEN 325 MG TAB PO PRN (23:40)
--- NOTE | 2018-06-19 00:13 | GHP ---
[f rep st] HISTORY AND PHYSICAL DATE OF ADMISSION: 06/18/2018 CHIEF COMPLAINT: Weakness and syncope. 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 He has been worki ng with Cardiology. By verbal report, I was told that monitoring revealed nonsustained ventricular t achycardia. The patient was started on low-dose metoprolol which was prescribed at 12.5 mg daily. T he patient's reports that instead of taking half a tablet, he was taking a full tablet, so he wa s getting 25 mg daily. Since initiating the metoprolol, he has had recurring episodes of lightheaded ness. He describes today when he was at his [employer] shop, after getting up from the seat, he felt l ightheaded and fell to the ground and hit his knee. No head trauma was noted. His describes 2 to 3 other similar episodes over the past week as well. In the emergency room, the patient was noted to be bradycardic with heart rate in the 40s. There was also evidence of tibial fracture. Cardiolo gy and Orthopedic Surgery were consulted by the patient's emergency room attending. PAST MEDICAL HISTORY: Atrial fibrillation, history of transient ischemic attack. PAST SURGICAL HISTORY: Left wrist surgery. CURRENT MEDICATIONS: Eliquis 5 mg twice a day; metoprolol succinate prescribed at 12.5 mg daily, but patient reports taking a full 25 mg tablet daily. ALLERGIES: No known drug allergies. FAMILY HISTORY: Father in his 80s after a major fall. Mother had atrial fibrillation, and ther e are 2 brothers reportedly also with atrial fibrillation. SOCIAL HISTORY: Patient is and lives at home with his . 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 REVIEW OF SYSTEMS: CONSTITUTIONAL: No complaints of any fevers or chills. ENT: No recent upper re spiratory illnesses. CARDIOVASCULAR: No complaints of any palpitations but positive for lightheaded ness and reported syncope he over the past week. RESPIRATORY: No complaints of shortness of breath or productive cough. GI: No nausea or vomiting. : No reports of any difficulty with urination. NEUROLOGIC: No complaints of any headaches or focal weakness but has noted some imbalance and has u pcoming consultation with Neurology. HEMATOLOGIC: No history of any deep vein thrombosis or pulmona ry embolism. PSYCHIATRIC: No history of anxiety or depression. ENDOCRINE: No history of heat into lerance or polyuria. SKIN: No new skin rashes or bruising. MUSCULOSKELETAL: Right knee pain is no yair. PHYSICAL EXAMINATION: VITAL SIGNS: Temperature afebrile, blood pressure 152/82,heart rate recorded at 85 but observed in the 40s and 50s during my evaluation, respiratory rate of 18, satting 93% on ro om air. GENERAL: Patient appears comfortable. He is awake, alert, conversant, in no acute distress . HEENT: Extraocular movements appear intact with no scleral icterus. NECK: Supple. No adenopath y or thyroid enlargement appreciated. CHEST: Clear on auscultation with normal respiratory effort. HEART: Bradycardic, regular. No murmurs noted. ABDOMEN: Soft, nontender, nondistended. : No Ravi catheter in place. EXTREMITIES: No significant pitting edema or calf pain with palpation. NE UROLOGIC: Cranial nerves 2 through 12 appear grossly intact with 5/5 strength in extremities. LABORATORY: White blood cell count 10, hemoglobin 14, platelets 174. Sodium 137, potassium 4.1, chl oride 100, bicarb 21, BUN 19, creatinine 0.9, glucose 95. Troponin 0.00. ASSESSMENT AND PLAN: 1. Symptomatic bradycardia with syncope, possibly related to recent addition of a beta william. Pat ient was taking higher than the prescribed dosing. Patient has had a recent outpatient cardiac gaurav p as well. Cardiology has been consulted, and we will await further recommendations after their cons ultation. 2. History of nonsustained ventricular tachycardia. This was by verbal report. We will need to cla rify with Cardiology. 3. Tibial fracture. Orthopedic Surgery consulted by emergency room. Consider bone density scanning as an outpatient. 4. Imbalance. We will obtain CT scan of the head to assess for any evidence of bleeding as patient is on anticoagulation. We will also assess for any old infarction. Patient states he has outpatient consultation with Neurology pending. 5. History of transient ischemic attack. This was several years ago. 6. Atrial fibrillation. Patient has been anticoagulated with Eliquis. Up until recently, he had no t been on any rate control agents. 7. Deep vein thrombosis prophylaxis. Patient is on Eliquis. 8. Disposition. Patient was living at home with his prior to coming into the hospital. I have admitted him under observation status. /[id number]/MODL
[2018-06-19] MEDS: oxyCODONE IR 5 MG TAB PO PRN ×6 (01:39→22:31)
[2018-06-19 04:34] LABS: PLATELET COUNT 165 10^3/uL (150-400)
[2018-06-19 04:36] LABS: INR 1.14 (0.83-1.16); PROTIME(PATIENT) 14.1 SEC (12.0-15.0)
--- NOTE | 2018-06-19 09:01 | HOSPPROG ---
Hospitalist Progress Note Assessment/Plan: Bradycardia, likely medication AE - metoprolol Dizziness/lightheadedness, 2/2 above PAF, on Eliquis Nonsustained VT -Holding metoprolol. Plan to resume 12.5mg Toprol daily (pt was accidentally taking 25mg). R lateral tibial plateau fracture Mechanical Falls, 2/2 bradycardia/lightheadedness -Continue MEETA wrap, pressure, ice, prn analgesics. -WBAT. -Ortho recs pending. Mildly elevated TSH -Subclinical hypothyroid range, not likely to be causing bradycardia. Many elderly people have TSH in subclinical hypothyroid range and are not necessarily symptomatic. -Check T4, thyroid Abx. -Since this can fluctuate and be caused by transient thyroiditis, hold off on thyroid supplementation at least until additional tests are done. -Recommend outpt FU for this issue. Anemia, mild - likely chronic Obesity Cognitive concern -Cog eval was done today after pt had been up all night in ED, in pain from knee fx, and after taking narcotics. -Recommend outpt workup for this w/ PCP. Pt seems appropriate and has mental capacity to make his own decisions. VTE ppx - Eliquis. Code status - Full. Changing to inpt for persistent bradycardia, weakness, severe pain requiring high risk pain meds, and need for continued monitoring. Objective: Vital Signs Temp Pulse Resp BP Pulse Ox 36.8 C 56 L 16 137/76 H 93 06/19/18 08:00 06/19/18 08:00 06/19/18 08:00 06/19/18 08:00 06/19/18 08:00 Laboratory Results 06/19/18 03:24 06/19/18 03:24 06/18/18 06/19/18 06/20/18 05:59 05:59 05:59 Intake Total 700 Output Total 300 Balance 400 PT 14.1 SEC (12.0-15.0) 06/19/18 03:24 INR 1.14 (0.83-1.16) 06/19/18 03:24 - Time Spent With Patient Time Spent with Patient: greater than 35 minutes Time Spent with Patient: Greater than 35 minutes spent on this patients care, greater than 50% of time spent counseling, educating, and coordinating care regarding the above mentioned plan. - Physical Exam Constitutional: no apparent distress, appears nourished Eyes: EOMI, No scleral injection Ears, Nose, Mouth, Throat: moist mucous membranes, hearing normal Cardiovascular: no murmur, rub, or gallop, bradycardia Respiratory: no respiratory distress, no rales or rhonchi Gastrointestinal: normoactive bowel sounds, No distension Skin: warm, normal color Musculoskeletal: joint effusion, joint tenderness Neurologic: AAOx3, CN II-XII Intact Psychiatric: interacting appropriately, not anxious ICD10 Worksheet Patient Problems: Problems Problem Status Onset Bradycardia Acute Syncope Acute Tibial plateau fracture, right Acute Hyperlipidemia Active Hypertriglyceridemia Active Transient ischemic attack Active Cellulitis of great toe, right Acute Fatigue Acute Pneumonia Acute Shortness of breath Acute Simple hepatic cyst Acute
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
--- NOTE | 2018-06-19 14:25 | PDMN ---
Medical Necessity Medical necessity: MCG M340 Syncope, A-1 day: 82 yo w/ recurrent lightheadedness and frequent falls. Recently on OP tele monitoring w/ reports nonsustained Vtach. Eval reveals bradycardia w/ HR 40s and tibial fx. Cardio and ortho consults ordered. Initially OBS for workup but pt still jose, likely medication related, consults pending, will require additional MN for ongoing diagnostic testing and management of the above and PT/OT consults, pt not safe to d/c home. Change to IP status 06/19/18@1149 per MD order. Hx afib, TIA.
[2018-06-19] MEDS: APIXABAN 5 MG TAB PO SCH ×2 (14:54→21:22)
[2018-06-19] MEDS: ACETAMINOPHEN 325 MG TAB PO PRN (16:41)
[2018-06-20] MEDS: oxyCODONE IR 5 MG TAB PO PRN (02:59)
[2018-06-20 04:50] LABS: INR 1.32 (0.83-1.16); PROTIME(PATIENT) 15.8 SEC (12.0-15.0)
[2018-06-20] MEDS ORDERED: BISACODYL 10 MG SUPP PR PRN (06:17)
[2018-06-20] MEDS ORDERED: MAGNESIUM HYDROXIDE 30 ML UDCUP PO PRN (06:17)
[2018-06-20] MEDS ORDERED: POLYETHYLENE GLYCOL 3350 17 GM PKT PO PRN (06:17)
[2018-06-20] MEDS ORDERED: LACTULOSE 20 GM/30 ML UDCUP PO PRN (06:17)
[2018-06-20] MEDS: ACETAMINOPHEN 325 MG TAB PO PRN ×2 (06:29→22:06)
[2018-06-20] MEDS: ASCORBIC ACID 500 MG TAB PO SCH (08:36)
[2018-06-20] MEDS: PYRIDOXINE HCL 100 MG TAB PO SCH (08:36)
[2018-06-20] MEDS: APIXABAN 5 MG TAB PO SCH ×2 (08:36→19:49)
[2018-06-20] MEDS: SENNOSIDES/DOCUSATE SODIUM TAB PO SCH ×2 (08:36→19:49)
[2018-06-20] MEDS: CHOLECALCIFEROL VIT D3 1,000 UNITS TAB PO SCH (08:36)
--- NOTE | 2018-06-20 09:05 | HOSPPROG ---
Hospitalist Progress Note Objective: Vital Signs Temp Pulse Resp BP Pulse Ox 36.5 C 51 L 19 98/55 L 94 06/20/18 08:00 06/20/18 08:00 06/20/18 08:00 06/20/18 08:00 06/20/18 08:00 06/19/18 06/20/18 06/21/18 05:59 05:59 05:59 Intake Total 500 Output Total 2975 Balance -2475 PT 15.8 SEC (12.0-15.0) H 06/20/18 03:36 INR 1.32 (0.83-1.16) H 06/20/18 03:36 ICD10 Worksheet Patient Problems: Problems Problem Status Onset Bradycardia Acute Syncope Acute Tibial plateau fracture, right Acute Hyperlipidemia Active Hypertriglyceridemia Active Transient ischemic attack Active Cellulitis of great toe, right Acute Fatigue Acute Pneumonia Acute Shortness of breath Acute Simple hepatic cyst Acute
--- NOTE | 2018-06-20 09:07 | HOSPPROG ---
Hospitalist Progress Note Assessment/Plan: Syncope - suspect 2/2 bradycardia in setting of metoprolol (was prescribed Toprol XL 12.5 mg daily, but took 25 mg daily) -holding BB -needs cardiology consult with NSVT issue Nonsustained VT - recently started on BB for this, which is currently held due to above -cardiology consult today, recommends continuing to hold BB A fib - HR 50's this am without BB -cont eliquis for CVA prevention R lateral tibial plateau fracture - needs ortho consult, discussed with Dr. Royal who does not recommend further imaging -WBAT, use walker Sub-clinical hypothyroidism - nl free T4 -outpt f/u Cognitive impairment - on SLUMS yest, though it's thought he may have been drug affected from opioids and in pain and sleep deprived -repeat cog eval when able -CT head neg -check B12, folate -consider brain MRI VTE ppx - Eliquis. Code status - Full. Dispo - cont inpt, will likely go to SNF in 1-2 days Subjective: Pt is unwilling to converse with me. He is on the phone, turns aways, gives me the hand and dismisses me. RN notes he is A&O x0. not present Objective: Vital Signs Temp Pulse Resp BP Pulse Ox 36.5 C 51 L 19 98/55 L 94 06/20/18 08:00 06/20/18 08:00 06/20/18 08:00 06/20/18 08:00 06/20/18 08:00 06/19/18 06/20/18 06/21/18 05:59 05:59 05:59 Intake Total 500 Output Total 2975 Balance -2475 PT 15.8 SEC (12.0-15.0) H 06/20/18 03:36 INR 1.32 (0.83-1.16) H 06/20/18 03:36 - Physical Exam Constitutional: no apparent distress Psychiatric: poor memory ICD10 Worksheet Patient Problems: Problems Problem Status Onset Bradycardia Acute Syncope Acute Tibial plateau fracture, right Acute Hyperlipidemia Active Hypertriglyceridemia Active Transient ischemic attack Active Cellulitis of great toe, right Acute Fatigue Acute Pneumonia Acute Shortness of breath Acute Simple hepatic cyst Acute
--- NOTE | 2018-06-20 09:32 | PDCARPN ---
Cardiology Progress Note Assessment/Plan: Mr. Mueller is an 82-year-old male who was admitted after an episode of near- syncope. 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 He did not have complete loss of consciousness. There was no associated chest discomfort or sensation of palpitations. He was brought to the emergency room at [facility] where his ECG demonstrated sinus bradycardia without any ischemic changes. His CBC, electrolytes, and renal function were normal. His troponin was normal. A TSH was elevated at 6.2 but a free T4 level was normal. An x-ray of his right knee demonstrated a nondisplaced tibial plateau fracture. He has been monitored on telemetry for over 36 hr at this point. Has demonstrated sinus rhythm/sinus bradycardia and occasional PVCs. He has a history of chronic episodes of lightheadedness and dizziness. He has had a thorough cardiac evaluation. A cardiac catheterization in 2015 demonstrated angiographically normal coronary arteries. An echocardiogram from September of last year demonstrated normal left ventricular systolic function and age-related valvular changes without hemodynamically significant valvular dysfunction. A 2 week heart monitor from late March to early April of this year demonstrated sinus rhythm without episodes of atrial fibrillation. His heart rate range was 33 to 160 bpm with an average of 64 bpm. There were 24 short bursts of SVT and a single 7 beat run of nonsustained VT. Because of the VT, he was prescribed metoprolol succinate with instructions to take a half of a 25 mg tablet daily. However, he was apparently taking a full tablet. His metoprolol has been on hold since his admission to the hospital. Plan: Would discontinue metoprolol at this point. He was seen in our electrophysiology clinic on May 03 with a plan for 3 month follow-up. I will instruct our office staff to contact the patient to arrange for a follow- up appointment sometime in the near future. At this point, he can be discharged from my perspective. 06/20/18 09:33 Subjective: No cardiac complaints. Right knee is sore. Objective: Vital Signs (8 Hrs) Temp Pulse Resp BP Pulse Ox 06/20/18 08:00 36.5 C 51 L 19 98/55 L 94 06/20/18 03:02 36.8 C 59 L 13 115/68 95 Intake/Output (24 Hrs) 06/19/18 06/20/18 06/21/18 05:59 05:59 05:59 Intake Total 500 Output Total 2975 Balance -2475 Intake: Oral (ml) 500 Output: Urine (ml) 2975 Toilet 1075 Urinal 1900 Other: Number of Voids Toilet 3 Result Diagrams: 06/19/18 03:24 06/19/18 03:24 - Physical Exam Constitutional: WDWN, no apparent distress Eyes: anicteric sclera Ears, Nose, Mouth, Throat: moist mucous membranes Cardiovascular: regular rate and rhythm, no murmurs, no gallops Respiratory: clear to auscultate bilat Gastrointestinal: normoactive bowel sounds, no tenderness, no masses Skin: no rashes, no edema Neurologic: AAOx3 Psychiatric: not anxious ICD10 Worksheet Patient Problems: Problems Problem Status Onset Transient ischemic attack Active Hyperlipidemia Active Hypertriglyceridemia Active Fatigue Acute Shortness of breath Acute Simple hepatic cyst Acute Cellulitis of great toe, right Acute Pneumonia Acute Bradycardia Acute Syncope Acute Tibial plateau fracture, right Acute
--- NOTE | 2018-06-20 12:47 | GCON ---
[f rep st] CONSULTATION ORTHOPEDIC ER CONSULT CHIEF COMPLAINT: Right knee pain. DIAGNOSES: 1. Right knee osteoarthritis. 2. Small nondisplaced lateral tibial plateau fracture. ASSOCIATED DIAGNOSES: 1. Atrial fibrillation. 2. History of transient ischemic attack. 3. On Eliquis blood thinner. BRIEF HISTORY OF PRESENT ILLNESS: Please see details of ER and admitting H and P. 82-year-old gentleman. 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 Studied the [employer]. I k now him well from an outpatient clinical setting. We did do a left quad tendon repair many years ago , and he has been successful with that. Recent hospitalization for fall. Recurring episodes of lightheadedness. I was asked to see him for right knee pain, swelling and a small lateral tibial plateau fracture. PHYSICAL EXAMINATION: GENERAL: Pertinent orthopedic examination reveals a well-appearing gentleman. He did recognize me. EXTREMITIES: States that he has some right knee pain and swelling. His left knee has full extension. The right knee has about 20 degrees active extension to 90 degrees flexion . Moderate effusion, likely hemarthrosis. He was able to take a stand with a walker today. IMAGING: X-rays at this hospitalization reveal tricompartmental osteoarthritis of the right knee. T here is a small chip off the lateral tibial plateau. IMPRESSION/RECOMMENDATION: Right lateral tibial plateau injury affecting the nonweightbearing portio n of the lateral tibial joint line. Also has knee osteoarthritis. I think there is a component of b oth. Recommend weightbearing as tolerated. Fall precautions. Walker at all times. Follow up in 1 to 2 weeks for possible knee aspiration and a steroid shot for improved functionality and pain asaf jain /[id number]/MODL
[2018-06-21] MEDS: ACETAMINOPHEN 325 MG TAB PO PRN ×3 (04:08→22:05)
[2018-06-21] MEDS: PYRIDOXINE HCL 100 MG TAB PO SCH (08:19)
[2018-06-21] MEDS: ASCORBIC ACID 500 MG TAB PO SCH (08:19)
[2018-06-21] MEDS: SENNOSIDES/DOCUSATE SODIUM TAB PO SCH ×2 (08:19→22:06)
[2018-06-21] MEDS: CHOLECALCIFEROL VIT D3 1,000 UNITS TAB PO SCH (08:19)
[2018-06-21] MEDS: APIXABAN 5 MG TAB PO SCH ×2 (08:20→22:05)
--- NOTE | 2018-06-21 12:48 | HOSPPROG ---
Hospitalist Progress Note Assessment/Plan: Syncope - suspect 2/2 bradycardia in setting of metoprolol (was prescribed Toprol XL 12.5 mg daily, but took 25 mg daily) -symptoms resolved off BB Nonsustained VT - recently started on BB for this, which was a brief run on outpt event monitor -per cards, stop BB A fib - HR controlled without AV mack blockers -cont eliquis for CVA prevention R lateral tibial plateau fracture - discussed with Dr. Royal who does not recommend further imaging or operative repair -WBAT, use walker -pain control, but will avoid opioids due to delirium risk Sub-clinical hypothyroidism - nl free T4 -outpt f/u Cognitive impairment - on SLUMS 06/19, though it's thought he may have been drug affected from opioids and in pain and sleep deprived -repeat cog eval when able -CT head neg -check B12, folate, normal VTE ppx - Eliquis. Code status - Full. Dispo - cont inpt, likely to SNF in am Subjective: Pt doing fine. Says his knee hurts more at night, but currently is pain controlled. No dizziness, CP or SOB. No palpitations. Objective: Vital Signs Temp Pulse Resp BP Pulse Ox 36.4 C 62 19 150/83 H 93 06/21/18 11:32 06/21/18 11:32 06/21/18 11:32 06/21/18 11:32 06/21/18 11:32 06/20/18 06/21/18 06/22/18 05:59 05:59 05:59 Intake Total 500 1275 720 Output Total 2975 2250 175 Balance -2475 -975 545 PT 15.8 SEC (12.0-15.0) H 06/20/18 03:36 INR 1.32 (0.83-1.16) H 06/20/18 03:36 - Physical Exam Constitutional: no apparent distress Eyes: PERRL Ears, Nose, Mouth, Throat: moist mucous membranes Cardiovascular: regular rate and rhythym Respiratory: no respiratory distress, clear to auscultation Gastrointestinal: normoactive bowel sounds, soft, non-tender abdomen Skin: warm Musculoskeletal: full muscle strength Neurologic: AAOx3 Psychiatric: interacting appropriately ICD10 Worksheet Patient Problems: Problems Problem Status Onset Bradycardia Acute Syncope Acute Tibial plateau fracture, right Acute Hyperlipidemia Active Hypertriglyceridemia Active Transient ischemic attack Active Cellulitis of great toe, right Acute Fatigue Acute Pneumonia Acute Shortness of breath Acute Simple hepatic cyst Acute
[2018-06-21] MEDS: KETOROLAC 15 MG/1 ML SDV IVP PRN (17:31)
[2018-06-22] MEDS: KETOROLAC 15 MG/1 ML SDV IVP PRN (01:15)
[2018-06-22] MEDS: ACETAMINOPHEN 325 MG TAB PO PRN (05:20)
[2018-06-22 07:24] VITALS: BP 108/58
[2018-06-22] MEDS: PYRIDOXINE HCL 100 MG TAB PO SCH (09:02)
[2018-06-22] MEDS: CHOLECALCIFEROL VIT D3 1,000 UNITS TAB PO SCH (09:02)
[2018-06-22] MEDS: ASCORBIC ACID 500 MG TAB PO SCH (09:03)
[2018-06-22] MEDS: SENNOSIDES/DOCUSATE SODIUM TAB PO SCH (09:03)
[2018-06-22] MEDS: APIXABAN 5 MG TAB PO SCH (09:03)
--- NOTE | 2018-06-22 09:23 | PDIAF ---
- Diagnosis Diagnosis: syncope, tibial plateau fracture, cognitive impairment Code Status: Full Code - Medication Management Discharge Medications: electronically signed and located in the Home Medication List. PICC Care - Routine: N/A - Orders Services needed: Registered Nurse, Physical Therapy, Occupational Therapy, Speech Language Pathologist Diet Recommendation: no restrictions on diet Additional Instructions: Follow up with PCP. Also, follow up with Dr. Barry, neurology, for further discussion about your cognitive changes and consideration of medication. Follow up with tato Mccarty. - Follow Up Care Current Providers and Referrals: CAMPOS DUENAS [Primary Care Provider] - Ryan Diana MD [Medical Doctor] - (The office staff at [facility] has been instructed to contact you to arrange a follow up appointment with Dr. diana in the near future.) Francoise Royal MD [Medical Doctor] - Kevin Barry DO [Medical Doctor] -
--- NOTE | 2018-06-22 10:06 | ASMTLACE ---
LACE Length of stay for Answers: 2 days current admission Acuity / Level of Answers: Yes Care: Did the patient have an inpatient admission? Comorbidities - select Answers: Cerebrovascular disease all that apply (CVA, TIA, aneurysms, vasc ular dementia) Other Notes: afib # of Emergency department Answers: 1-2 visits in the last 6 months Score: 8 Date Signed: 06/22/2018 10:05 AM Electronically Signed By:Akua Garcia RN
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
--- NOTE | 2018-06-22 10:12 | ASMTDCNOTE ---
Case Management Discharge Discharge Order Complete? Answers: Yes Patient to Obtain Answers: Other Notes: [facility] Medications Transportation Arranged Answers: Other Notes: [facility] w/c with O2 arranged by [employer] Transport will Pick (Date 06/22/2018 11:00 AM & Time) Faxed Final Orders Answers: Yes Notes: [facility] Transfer Answers: Yes Notes: [facility] Report Printed & Faxed to Receiving Agency Family Notified Answers: Yes Notes: claire in room; for candy x 2 Discharge Comments Notes: 06/22/2018 Case Management Note Faxed final orders to [facility]. [employer] notified on phone and arranged transport. Daughter Claire in room, will accompany pt to [facility]. [place] transport w/c arranged by [employer]. RN to call report Case Management d/c poc: [facility] Date Signed: 06/22/2018 10:10 AM Electronically Signed By:Akua Garcia RN
--- NOTE | 2018-06-22 13:20 | GDS ---
[f rep st] DISCHARGE SUMMARY DISCHARGE DIAGNOSES: 1. Syncope, secondary to bradycardia in the setting of new beta william. 2. History of nonsustained ventricular tachycardia. 3. Atrial fibrillation. 4. Right tibial plateau fracture. 5. Subclinical hypothyroidism. 6. Cognitive impairment 18/30 on [facility] Mental Status. CONSULTANTS: 1. Dr. Francoise Royal, Orthopedic Surgery. 2. Dr. Danny Martinez, Cardiology. IMAGING: Head CT June 18, 2018, is negative for intracranial hemorrhage or acute infarct. Cerebrovascu lar atherosclerosis is noted. HISTORY OF PRESENT ILLNESS: For details, please see history and physical dated June 18, 2018. In brief , the patient is an 82-year-old male with a history of atrial fibrillation who presented to the emerg ency department with weakness and syncope. He was apparently recently given an outpatient cardiac dewayne nt monitor and a 7-beat run of nonsustained ventricular tachycardia was noted. He was prescribed meto prolol 12.5 mg daily, but was actually taking 25 mg daily. On the day of admission, he had a syncopal event while at the [employer], and upon arrival, he was found to be bradycardic with heart rate in the low 40s. He was admitted hospital for further management. HOSPITAL COURSE: The patient was admitted to the cardiac telemetry unit. He was monitored on telemet ry. His beta-william was held and his bradycardia improved. His heart rate has been in the 50s to 60s without AV mack blockers. There has been no recurrent nonsustained ventricular tachycardia. Cardiol ogy consult was obtained given his history of nonsustained ventricular tachycardia. It was recommende d he discontinue beta william altogether for now and I [facility], Dr. Ryan Serrato. He also suffered a small right tibial plateau fracture and orthopedic surgery consult was obtained. T his was deemed nonoperative. He was allowed weightbearing as tolerated and recommend that he walk wit h a walker. His pain is controlled on Tylenol and he did receive a couple doses of IV Toradol, but op iates have been avoided given his cognitive impairment. It has been reported by his family that there have been some ongoing cognitive changes. He scored 18/[address] was negative for infarct or bleed. I recommend he have outpatient followup with Neurology to further discuss his cognitive imp airment and consider initiation of medication therapy. He had a normal B12 and folate here. In addition, his TSH was slightly elevated at 6.2. He had a norm al free T4. I have deferred treatment of subclinical hypothyroidism to his primary care physician and recommend he have close followup with Dr. Velasquez on this. DISPOSITION: Patient is discharged to [facility] facility for ongoing physical therapy and cogn itive therapy with PT, OT and speech evaluation. FOLLOWUP: Followup with: 1. Dr. Sandra Velasquez, Primary Care. 2. Dr. Kevin Barry, Neurology. 3. Dr. Ryan Serrato, Cardiology, Electrophysiology. 4. Dr. Francoise Royal, Orthopedic Surgery. DISCHARGE MEDICATIONS: Please see Oxigene for completed outpatient medication list. Medication at d ischarge, includes Tylenol 1000 mg p.o. q.8 hours #45, no refills; Celebrex 100 mg p.o. b.i.d. #14, n o refills. This is meant to be used for only 1 week as I defer long-term NSAID use in the setting of anticoagulation. . He will continue all other outpatient medications previously prescribed, including Eliquis 5 mg p.o. b.i.d. and his various vitamins. Discontinued medication: Toprol-XL is discontinued for now. /[id number]/MODL
== END 2018-06-22 11:29 | DRG 309 ==
LOC: F2W 17:23 → OBSVTOIN 06-19 11:49
PROVIDERS: ADMIT Internal Medicine; ATTEND Internal Medicine
DX: R00.1 Bradycardia, unspecified (principal); S82.124A Nondisplaced fracture of lateral condyle of right tibia, initial encounter for closed fracture; T44.7X5A Adverse effect of beta-adrenoreceptor antagonists, initial encounter; W18.39XA Other fall on same level, initial encounter; Y92.513 Shop (commercial) as the place of occurrence of the external cause; R55 Syncope and collapse; I48.91 Unspecified atrial fibrillation; M17.11 Unilateral primary osteoarthritis, right knee; D64.9 Anemia, unspecified; E66.9 Obesity, unspecified; E02 Subclinical iodine-deficiency hypothyroidism; Z86.73 Personal history of transient ischemic attack (TIA), and cerebral infarction without residual deficits; Z79.01 Long term (current) use of anticoagulants
CPT/HCPCS: 82607-90; 84484-ER; 86376-90; 86800-90; 92507-GN; 92523-GN; 97161-GP; G0378; J1885

== ENCOUNTER 2018-07-07 12:54 | Emergency (ER) | payer OTHER ==
[2018-07-07 14:06] LABS: PLATELET COUNT 176 10^3/uL (150-400)
--- NOTE | 2018-07-07 14:26 | EDPHY ---
H & P Stated Complaint: palpitations Time Seen by Provider: 07/07/18 13:43 HPI/ROS: CHIEF COMPLAINT: Palpitations HISTORY OF PRESENT ILLNESS: 82-year-old male on Eliquis presents with palpitations. Long history of intermittent palpitations and underwent an extensive cardiac evaluation recently, including Holter monitoring. Eval reportedly unremarkable except for PAC's. Onset of rapid heart rate this morning, lasting 1-2 hrs and associated with dizziness, now resolved. Sx moderate, now asymptomatic. No cp or SOB. REVIEW OF SYSTEMS: complete 10 point ROS reviewed and is negative except for the noted elements in the HPI Source: Patient - Personal History Current Tetanus Diphtheria and Acellular Pertussis (TDAP): No Tetanus Vaccine Date: 2009 - Medical/Surgical History Hx Asthma: No Hx Chronic Respiratory Disease: No Hx Diabetes: No Hx Cardiac Disease: Yes Hx Renal Disease: No Hx Cirrhosis: No Hx Alcoholism: No Hx HIV/AIDS: No Hx Splenectomy or Spleen Trauma: No Other PMH: heart arrthymias.afib, TIA 2013, hyperlipemia - Family History Significant Family History: No pertinent family hx - Social History Smoking Status: Former smoker Alcohol Use: Sober Drug Use: None Additional Social History: - Physical Exam Exam: General Appearance: Alert, pleasant and talkative Eyes: Pupils equal and round, no conjunctival pallor or injection ENT, Mouth: Mucous membranes moist Neck: Normal inspection Respiratory: Lungs are clear to auscultation Cardiovascular: Regular rate and rhythm, occasional irregular heartbeat Gastrointestinal: Abdomen is soft and nontender Neurological: A&O, nonfocal exam Skin: Warm and dry, no rash Extremities: Nontender, no pedal edema Psychiatric: Mood and affect normal Constitutional: Initial Vital Signs Temperature (C) 36.6 C 07/07/18 13:04 Heart Rate 80 07/07/18 13:04 Respiratory Rate 18 07/07/18 13:04 Blood Pressure 115/64 07/07/18 13:04 O2 Sat (%) 93 07/07/18 13:04 O2 Delivery Mode Room Air Allergies/Adverse Reactions: No Known Allergies Allergy (Verified 07/07/18 13:03) Home Medications: Medication Instructions Recorded Apixaban [Eliquis] 5 mg PO BID 06/18/18 Ascorbic Acid [Vitamin C 500 mg 500 mg PO DAILY 06/18/18 (*)] Cholecalciferol Vit D3 [Vitamin D3 1,000 units PO DAILY 06/18/18 (*)] Herbals/Supplements -Info Only 1 ea PO DAILY 06/18/18 Pyridoxine HCl [Vitamin B-6 100 mg 100 mg PO DAILY 06/18/18 (*)] Tamsulosin HCl [Flomax 0.4 MG (*)] 0.4 mg PO DAILY 07/08/18 Medical Decision Making - Diagnostics EKG Interpretation: EKG interpreted by me reveals sinus rhythm, rate 71, PACs, right bundle branch block. Interpretation: Abnormal EKG Imaging Results: CXR: NAD Imaging: I viewed and interpreted images myself ED Course/Re-evaluation: Assess: Palpitations/PAC's. EKG reveals PAC's, no evidence of ischemia. Obs in ED, cardiac surgeon revealed PAC's only, no Afib/other dysrhythmia. No evidence of ACS or other concerning etiology. Pt safe/stable for d/c. Will f/ u Dr. Serrato in the office. Differential Diagnosis: includes though not limited to Afib, ACS, SVT, ventricular dysrhythmia - Data Points Laboratory Results: Laboratory Results 07/07/18 13:20 07/07/18 13:20 Point of Care Test Results: Chemistry 07/07/18 13:24 POC Troponin I 0.00 ng/mL ng/mL (0.00-0.08) Departure - Departure Disposition: Home, Routine, Self-Care Clinical Impression: Palpitations Condition: Good Instructions: Heart Palpitations (ED), Premature Atrial Contractions (ED) Additional Instructions: Your heart monitor shows normal sinus rhythm with occasional premature atrial contractions. Referrals: CAMPOS DUENAS [Primary Care Provider] - As per Instructions Ryan Serrato MD [Medical Doctor] - As per Instructions
[2018-07-07 14:39] VITALS: BP 129/82
--- NOTE | 2018-07-07 16:26 | CPEKG ---
Test Reason : OPEN Blood Pressure : / mmHG Vent. Rate : 071 BPM Atrial Rate : 071 BPM P-R Int : 159 ms QRS Dur : 149 ms QT Int : 410 ms P-R-T Axes : 061 -69 -06 degrees QTc Int : 446 ms Sinus rhythm Atrial premature complexes RBBB and LAFB Confirmed by Brianna Shell ([id number]) on 07/07/2018 4:26:17 PM Referred By: PHYSICIAN ED Confirmed By:Brianna Shell
== END 2018-07-07 14:40 | disposition home or self-care (01) ==
DX: R00.2 Palpitations (principal); Z79.01 Long term (current) use of anticoagulants
CPT/HCPCS: 84484-ER

== ENCOUNTER 2018-07-13 13:24 | Observation (INO) | payer OTHER ==
[2018-07-13] MEDS ORDERED: ceFAZolin 2 GM/DEXTROSE 100 ML IV ONE (13:29)
[2018-07-13] MEDS ORDERED: BACITRACIN IRRIGATION/NS 50,000 UNITS/1,000 ML BTL IRR ONE (13:29)
[2018-07-13] MEDS ORDERED: diphenhydrAMINE 25 MG CAP PO ONE (13:29)
[2018-07-13] MEDS ORDERED: NS 1,000 ML IV ONE (13:29)
[2018-07-13] MEDS ORDERED: DIAZEPAM 5 MG TAB PO ONE (13:29)
[2018-07-13 14:00] LABS: PLATELET COUNT 177 10^3/uL (150-400)
--- NOTE | 2018-07-13 14:05 | PDANEPAE ---
ANE Past Medical History - Pulmonary History Hx Oxygen in Use at Home: No Hx Sleep Apnea: No - Endocrine History Hx Diabetes: No - Chronic Pain History Chronic Pain: No ANE Review of Systems Review of Systems: ANE Patient History - Allergies Allergies/Adverse Reactions: No Known Allergies Allergy (Verified 07/07/18 13:03) - Home Medications Home Medications: Apixaban [Eliquis] 5 mg PO BID 06/18/18 [Last Taken 06/17/18] Ascorbic Acid [Vitamin C 500 mg (*)] 500 mg PO DAILY 06/18/18 [Last Taken ] Cholecalciferol Vit D3 [Vitamin D3 (*)] 1,000 units PO DAILY 06/18/18 [Last Taken 06/18/18] Herbals/Supplements -Info Only 1 ea PO DAILY 06/18/18 [Last Taken 06/18/18] Pyridoxine HCl [Vitamin B-6 100 mg (*)] 100 mg PO DAILY 06/18/18 [Last Taken 06/03] Tamsulosin HCl [Flomax 0.4 MG (*)] 0.4 mg PO DAILY 07/08/18 [Last Taken Unknown] - Smoking Hx Smoking Status: Former smoker ANE Labs/Vital Signs - Labs Result Diagrams: 07/13/18 13:50 07/13/18 13:50 ANE Physical Exam - Airway Neck exam: FROM Mallampati Score: Class 3 Mouth exam: poor dentition - Pulmonary Pulmonary: no respiratory distress - Cardiovascular Cardiovascular: regular rate and rhythym - ASA Status ASA Status: III ANE Anesthesia Plan Anesthesia Plan: GA w LMA
--- NOTE | 2018-07-13 14:16 | PDGENHP ---
History & Physical Chief Complaint: sick sinus syndrome History of Present Illness: symptomatic sick sinus syndrome Relevant Physical Exam: A+Ox4, RR/NR with occasional ectopy, no MRG, CTAB, no focal deficits Cardiorespiratory Assessment: SSS -> DC PM
[2018-07-13 14:23] LABS: INR 1.17 (0.83-1.16); PROTIME(PATIENT) 14.4 SEC (12.0-15.0)
[2018-07-13] MEDS ORDERED: LIDOCAINE 2% 100 MG/5 ML SYR ONE (14:25)
[2018-07-13] MEDS ORDERED: PROPOFOL 200 MG/20 ML VIAL ONE (14:25)
[2018-07-13] MEDS ORDERED: fentaNYL 100 MCG/2 ML INJ ONE (14:25)
[2018-07-13] MEDS ORDERED: BUPIVACAINE 0.5% 30 ML SDV ONE (14:43)
[2018-07-13] MEDS ORDERED: ALBUTEROL 3 ML DEYVIAL IH PRN (15:27)
[2018-07-13] MEDS ORDERED: ONDANSETRON 4 MG/2 ML VIAL IVP PRN (15:27)
[2018-07-13] MEDS ORDERED: fentaNYL 100 MCG/2 ML INJ IVP PRN (15:27)
[2018-07-13] MEDS ORDERED: ACETAMINOPHEN 500 MG TAB PO PRN (15:27)
[2018-07-13] MEDS ORDERED: NALOXONE HCL 0.4 MG/ML INJ IVP PRN (15:27)
[2018-07-13] MEDS ORDERED: HYDROCODONE/APAP 5/325 TAB PO PRN (15:53)
--- NOTE | 2018-07-13 16:20 | EPPROC ---
Electrophysiology Procedure Note: Date: 07/13/2018 Icer Air Conditioning: Nelson Valentine MD Procedures: Implantation of dual-chamber pacemaker -[id number] Indications: 82-year-old male with symptomatic sick sinus syndrome. Techniques: Following informed consent, the patient was brought to the EP lab in a fasting nonsedated state, in sinus rhythm. IV antibiotics were administered. General anesthesia was provided by the anesthesiology service. The left anterior chest was prepped and draped in usual sterile fashion. Vascular access was obtained x2 in the extrathoracic portion of the left subclavian vein under ultrasound guidance. A skin incision was made at the left deltopectoral groove, and cutdown was performed to the deltopectoral fascia ; a subcutaneous pocket was fashioned. Two 6 [place] hemostasis sheaths were inserted over the access wires. Pacing leads were delivered to RV mid septal and RA appendage positions, and actively fixated. The leads were anchored to the underlying fascia using 2 nonabsorbable sutures around each lead's retention sleeve. The leads were connected to the pulse generator. The system was placed in pocket and a non resorbable stay suture was applied to the can. The pocket was irrigated with antibiotic solution. D stat hemostatic matrix was injected. The incision was closed in layers using resorbable sutures, and dressed with Steri-Strips. Final fluoroscopic survey showed no evidence of pneumothorax, and stable system position. The patient tolerated procedure well. Pulse generator: SJM [id number], SN [id number], implant 07/13/18 DDDR 60-120 RA lead: SJM 2088TC, SN [id number], implant 07/13/18 2.7mV, 436ohms, 0.4V@0.5ms RV lead: SJM 2088TC, SN [id number], implant 07/13/18 10.0mv, 504ohms, 0.3V@0.5ms EBL: Minimal Complications: None Assessment: Successful implantation of dual-chamber pacemaker for treatment of sick sinus syndrome Plan: Bedrest 4 hr post procedure Chest x-ray and interrogation in the morning One month left upper extremity restrictions Keep incision dry for 2 days Patient Problems: Problems Problem Status Onset Hyperlipidemia Active Hypertriglyceridemia Active Transient ischemic attack Active Bradycardia Acute Cellulitis of great toe, right Acute Fatigue Acute Pneumonia Acute Shortness of breath Acute Simple hepatic cyst Acute Syncope Acute Tibial plateau fracture, right Acute
[2018-07-14 04:46] LABS: PLATELET COUNT 159 10^3/uL (150-400)
[2018-07-14] MEDS ORDERED: PNEUMOC 13-VAL CONJ-DIP CRM/PF 0.5 ML SYR (PREVNAR 13) IM ONE (09:45)
[2018-07-14 11:32] VITALS: BP 115/73
--- NOTE | 2018-07-14 16:31 | ASDISCHSUM ---
Discharge Information Plan Status: Medically Cleared to Leave: Discharge Date:07/14/2018 12:58 PM CM D/C Disposition: ADT D/C Disposition:Home, Routine, Self-Care Projected Discharge Date:07/14/2018 12:58 PM Transportation at D/C: Discharge Delay Reason: Follow-Up Date:07/14/2018 12:58 PM Discharge Slot: Final Diagnosis: Placement Information Patient Contact Information Contact Name:RIRI Relationship: Address:[address] City:[place] Alternate Phone: [facility]/Zip Code:[place] [address] Email: Financial Information Financial Class:Medicare Primary Plan Desc:MEDICARE OUTPATIENT Primary Plan Number:[id number] Secondary Plan Desc:[facility] Secondary Plan Number:[id number] Assessment Information LACE LACE Length of stay for Answers: Less than 1 day current admission Comorbidities - select Answers: Cerebrovascular disease all that apply (CVA, TIA, aneurysms, vasc ular dementia) Other Notes: [place]; HAILE # of Emergency department Answers: 3-4 visits in the last 6 months Score: 5 Date Signed: 07/14/2018 04:30 PM Electronically Signed By:Miguelina Bell Case Management Discharge Plan Note Case Management Discharge Discharge Order Complete? Answers: Yes Patient to Obtain Answers: via Family Medications Transportation Arranged Answers: Family/Friends Family Notified Answers: Yes Notes: vinay Amaral Discharge Comments Notes: Pt is being D/Cd home today. He will continue with home health care he has already been using that provides PT/OT/cogntive therapy. Vinay Amaral will drive him home. No CM needs identified. Date Signed: 07/14/2018 04:30 PM Electronically Signed By:Miguelina Hernandez.RN Intervention Information Intervention Type:*ARGUELLO-Signed Date of Service:07/14/2018 01:45 PM Patient Type:Observation Staff Member:Blanca Mack Hours: Discipline: Severity: Comment:
--- NOTE | 2018-07-15 11:57 | CPEKG ---
Test Reason : OPEN Blood Pressure : / mmHG Vent. Rate : 080 BPM Atrial Rate : 081 BPM P-R Int : 156 ms QRS Dur : 153 ms QT Int : 410 ms P-R-T Axes : 059 -71 -30 degrees QTc Int : 473 ms Sinus rhythm RBBB and LAFB Confirmed by Joe Hill ([id number]) on 07/15/2018 11:56:47 AM Referred By: Bala Valentine Confirmed By:Joe Hill
--- NOTE | 2018-07-15 14:33 | CPEKG ---
Test Reason : OPEN Blood Pressure : / mmHG Vent. Rate : 060 BPM Atrial Rate : 060 BPM P-R Int : 108 ms QRS Dur : 160 ms QT Int : 474 ms P-R-T Axes : 006 242 001 degrees QTc Int : 474 ms Atrial-paced complexes RBBB and LAFB Confirmed by Joe Hill ([id number]) on 07/15/2018 2:32:33 PM Referred By: Bala Valentine Confirmed By:Joe Hill
--- NOTE | 2018-07-15 14:38 | CPEKG ---
Test Reason : OPEN Blood Pressure : / mmHG Vent. Rate : 068 BPM Atrial Rate : 060 BPM P-R Int : 112 ms QRS Dur : 156 ms QT Int : 431 ms P-R-T Axes : -09 -68 -42 degrees QTc Int : 459 ms Atrial-paced complexes Ventricular premature complex RBBB and LAFB Confirmed by Joe Hill ([id number]) on 07/15/2018 2:38:12 PM Referred By: Bala Valentine Confirmed By:Joe Hill
--- NOTE | 2018-07-17 11:12 | GDS ---
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 ADMISSION DIAGNOSIS: Sick sinus syndrome. DISCHARGE DIAGNOSIS: Sick sinus syndrome, status post implant of a dual- chamber permanent pacemaker. PROCEDURES PERFORMED DURING HOSPITALIZATION: 1. Electrocardiogram. 2. Chest x-ray. 3. Implant of dual-chamber permanent pacemaker. 4. Device interrogation. HOSPITAL COURSE: Patient presented 07/13/2018, for implant of a permanent pacemaker in the setting of sick sinus syndrome with recent presyncope, syncope , and fatigue. He underwent successful implant of a [place] dual-chamber permanent pacemaker with Dr. Bala Valentine without any intra-procedure complications. He did very well post procedure, and he is appropriate and stable for discharge home. PHYSICAL EXAMINATION: GENERAL: Alert and oriented x3-4, no apparent distress. VITAL SIGNS: Blood pressure 115/73, heart rate 72, respiratory rate 16, SpO2 96% on room air, temp 36.4 degrees Celsius. RESPIRATORY: Lungs are clear to auscultation without adventitious breath sounds. CARDIAC: Regular rate and rhythm, S1, S2. ABDOMEN: Normoactive bowel sounds times all 4 quadrants. No masses or tenderness. Soft to palpation. SKIN: [place], warm, dry. Left pectoral incision had a clean and dry dressing in place, no evidence of hematoma , oozing, or streaking from the site. EXTREMITIES: Pulses 2+ bilaterally, no cyanosis or clubbing, no edema. LABORATORY STUDIES: Drawn to date demonstrate stable CBC and BMP compared to preprocedure. PROCEDURES PERFORMED DURING HOSPITALIZATION: Chest x-ray this morning demonstrates appropriate lead placement without any acute findings. Electrocardiogram this morning demonstrates paced rhythm without any new ST-T wave or NM interval abnormalities. DISCHARGE DISPOSITION: Patient will be discharged home in stable condition. He is under activity restrictions as below. DISCHARGE MEDICATIONS: Please see the discharge medication reconciliation sheet for full details. Please note that no medication changes have been made during this hospitalization. DISCHARGE INSTRUCTIONS: Post pacemaker instructions were reviewed in detail with patient and his . 1. We discussed activity restrictions including avoidance of lifting more than 5 pounds, putting his left arm above the level of the shoulder or behind his back, pushing or pulling for the next 4 weeks. He will avoid strenuous upper body exertion with his left arm for the next 6 weeks. 2. We discussed wound care for his left pectoral incision site. 3. We discussed monitoring for fever, chills, oozing, or hematoma. 4. The patient has been advised not to drive or swim until he is seen for followup and cleared per cardiology in the setting of recent syncope, he verbalizes understanding and has agreed not to drive. 5. At the time of discharge, the patient verbalized understanding regarding all discharge instructions without any questions or concerns. He will follow up with our device clinic within the next 2 weeks, and he will follow up with Dr. Valentine within the next 4 weeks. He will contact [facility] with any new or concerning symptoms prior to his upcoming visits. Time spent on discharge greater than 30 minutes. ADDENDUM Nelson Valentine MD-patient seen and discussed with Ms Thomas. Relevant portions of history/physical/ros/data review personally performed by me. Uneventful postoperative stay status post implantation of dual-chamber pacemaker for treatment of sick sinus syndrome. Postop care and follow-up as above. /[id number]/MODL MTDD
--- NOTE | 2018-07-18 09:20 | GPROG ---
[f rep st] PROGRESS NOTE POST-ANESTHESIA NOTE DATE OF SERVICE: 07/14/2018 Patient was taken to the recovery room in stable condition. No apparent anesthetic complications. /[id number]/MODL
== END 2018-07-14 12:58 | disposition home or self-care (01) ==
LOC: FCATH 13:24 → F2W 15:53
PROVIDERS: ADMIT Internal Medicine Cardiovascular Disease; ATTEND Internal Medicine Cardiovascular Disease
DX: I49.5 Sick sinus syndrome (principal); I48.92 Unspecified atrial flutter; I10 Essential (primary) hypertension; E78.5 Hyperlipidemia, unspecified; Z86.73 Personal history of transient ischemic attack (TIA), and cerebral infarction without residual deficits; G47.33 Obstructive sleep apnea (adult) (pediatric)
CPT/HCPCS: 33208; 71046; 90670; 93005; A4649; C1785; C1898; G0009; J0690; J2001; J2704; J3010

== ENCOUNTER 2018-07-16 16:27 | Emergency (ER) | payer OTHER | END 2018-07-16 17:27 | disposition home or self-care (01) ==

== ENCOUNTER 2018-07-18 22:46 | Emergency (ER) | payer OTHER | END 2018-07-19 01:21 | disposition home or self-care (01) ==